=== PATIENT | female | born 1980 | race Caucasian/White ===

== ENCOUNTER 2016-06-06 15:12 | Emergency (ER) | payer OTHER ==
[~2016-06-06] VITALS: Ht 162.6 cm; Wt 68.9 kg
[2016-06-06 15:17] VITALS: Ht 162.6 cm; Wt 68.9 kg
[2016-06-06] MEDS ORDERED: morphine 4 MG/ML VIAL IV STA (15:54)
[2016-06-06] MEDS ORDERED: ONDANSETRON 4 MG INJ IV STA (15:54)
[2016-06-06 16:26] LABS: ADD SCAN DIFF NO
[2016-06-06 16:29] LABS: BASOPHIL # 0.1 10^3/ul (0.0-0.1); BASOPHILS % 0.5 % (0.0-2.0); EOSINOPHILS # 0.3 10^3/ul (0.0-0.5); EOSINOPHILS % 3.5 % (0.0-7.0); HEMATOCRIT 39.2 % (37.0-47.0); HEMOGLOBIN 13.6 g/dl (12.0-16.0); LYMPHOCYTES # 1.9 10^3/ul (0.8-2.9); LYMPHOCYTES % 19.8 % (15.0-51.0); MEAN CORPUSCULAR HEMOGLOBIN 31.1 pg (29.0-33.0); MEAN CORPUSCULAR HGB CONC 34.7 g/dl (32.0-37.0); MEAN CORPUSCULAR VOLUME 89.5 fl (82.0-101.0); MEAN PLATELET VOLUME 10.1 fl (7.4-10.4); MONOCYTE # 0.5 10^3/ul (0.3-0.9); MONOCYTES % 5.2 % (0.0-11.0); NEUTROPHIL # 6.7 10^3/ul (1.6-7.5); NEUTROPHILS % 70.8 % (39.0-77.0); PLATELET COUNT 264 10^3/UL (140-415); RED BLOOD COUNT 4.38 10^6/ul (4.20-5.40); RED CELL DISTRIBUTION WIDTH 12.6 % (11.5-14.5); WHITE BLOOD COUNT 9.5 10^3/ul (4.8-10.8)
[2016-06-06 16:30] LABS: ADD UMIC YES; URINE BILIRUBIN (Dip) NEGATIVE (NEGATIVE); URINE BLOOD (Dip) 3+ (NEGATIVE); URINE COLOR LT. YELLOW (YELLOW); URINE GLUCOSE (Dip) NEGATIVE (NEGATIVE); URINE KETONES (Dip) NEGATIVE (NEGATIVE); URINE LEUKOCYTE ESTERASE (Dip) TRACE (NEGATIVE); URINE NITRITE (Dip) POSITIVE (NEGATIVE); URINE TOTAL PROTEIN (Dip) TRACE (NEGATIVE); URINE UROBILINOGEN (Dip) 0.2 E.U./dL (0.1-1.0)
[2016-06-06 16:43] LABS: ALBUMIN 4.5 g/dl (3.3-4.9)
[2016-06-06 16:44] LABS: POTASSIUM 3.9 mmol/L (3.5-5.1)
[2016-06-06 16:45] LABS: CREATININE 0.71 mg/dl (0.44-1.00)
[2016-06-06 16:46] LABS: ALBUMIN/GLOBULIN RATIO 1.4; BILIRUBIN,INDIRECT 0.2 mg/dl (0-1.1); BILIRUBIN,TOTAL 0.2 mg/dl (0.2-1.3); CALCIUM 9.5 mg/dl (8.4-10.2); TOTAL PROTEIN 7.7 g/dl (6.1-8.1)
[2016-06-06 16:54] LABS: BACTERIA,URINE MODERATE; SQUAMOUS EPITHELIAL CELL,UR FEW
--- NOTE | 2016-06-06 17:39 | RADRPT ---
PROCEDURE: CT abdomen and pelvis without contrast. CLINICAL INDICATION: Right abdominal pain TECHNIQUE: Continues 2.5 mm axial images were obtained from the domes of the diaphragms to the inf erior pubic rami. No oral or intravenous contrast was administered. The calculated dose length prod uct (DLP) = 454.96 mGy-cm. Exam CTDlvol = 8.16 mGy. One or more of the following dose reduction t echniques were used: Automated exposure control, adjustment of the mA and or KV according to patient size, or use of iterative reconstruction technique. One or more of the following dose reduction te chniques were used: Automated exposure control, adjustment of the mA and or KV according to patient size, or use of iterative reconstruction technique. COMPARISON: None. FINDINGS: The lung bases are clear. No pleural pericardial fluid is seen. Liver, gallbladder, pancreas, spleen, and adrenals are within normal limits. Evaluation of the nacho tourinary system demonstrates a 5.2 x 4.3 mm calcification just posterior to the right [place] trigone of the bladder which likely represents a very distal ureteral calculus just proximal to the ureterov esicular junction. There is associated mild right hydronephrosis. In addition, there are nonobstru cting bilateral intrarenal calculi. No perinephric fluid or stranding seen. Aorta is normal in [place] iber. There are no pathologically enlarged mesenteric lymph nodes. The stomach and small bowel loo ps are within normal limits. No small bowel dilatation or obstruction is identified. There is no f ree fluid, free air, abscess in the abdomen CT pelvis: Images through the pelvis demonstrate no free fluid, free air, abscess. Bladder is norm ally distended grossly unremarkable. There are no bladder calculi. Uterus and adnexa are grossly u nremarkable. Evaluation of the colon demonstrates no diverticulosis, diverticulitis or acute coliti s. Normal appendix is visualized. Terminal ileum is unremarkable. There are no pathologically enl arged iliac chain lymph nodes. No destructive bony lesions are seen. IMPRESSION: 1. 5.2 x 4.3 mm calcification right [place] pelvis posterior the bladder likely represents a calculus in the distal right ureter just proximal to the ureterovesicular junction. There is associated mild right hydro ureteral nephrosis. If indicated this can be further evaluated with CT urogram. 2. Additional nonobstructing bilateral intrarenal calculi. 3. Normal appendix RPTAT: HH .Stefano Kelly MD, MD Date Time Electronically viewed and signed by .Stfeano Kelly MD, MD on 06/06/2016 17:39 .W/
[2016-06-06] MEDS ORDERED: KETOROLAC 30 MG INJ IV STA (17:51)
[2016-06-06] MEDS ORDERED: CEFTRIAXONE 1 GM/50 ML (PMX) 50 ML IVPB ONE (18:00)
[2016-06-06] MEDS ORDERED: CEPH-443 PO (18:06)
[2016-06-06] MEDS ORDERED: HYDR-906 PO (18:06)
[2016-06-06] MEDS ORDERED: TAMS-14 PO (18:06)
--- NOTE | 2016-06-06 18:11 | ERD ---
ER Documentation Chief Complaint Date/Time DATE: 06/06/16 TIME: 18:10 Chief Complaint RLQ AP X 1 day with nausea. HPI This 36-year-old female complains of a sudden onset right lower quadrant abdominal pain today. She denies fevers, vomiting, shortness breath or chest pain. She denies any urinary complaints ROS All systems reviewed and are negative except as per history of present illness. Medications Home Meds Active Scripts Tamsulosin Hcl* (Flomax*) 0.4 Mg Cap.er.24h, 0.4 MG PO QPM, #30 CAP Prov:YUSUF NOLAND MD 06/06/16 Cephalexin* (Keflex*) 500 Mg Capsule, 500 MG PO QID for 7 Days, CAP Prov:YUSUF NOLAND MD 06/06/16 Hydrocodone/Acetaminophen ([place] 5-325 Tablet) 1 Each Tablet, 1 TAB PO Q6H Y for PAIN, #14 TAB Prov:YUSUF NOLAND MD 06/06/16 Allergies Allergies: Coded Allergies: No Known Allergy (Unverified , 06/06/16) Physical Exam Vitals Vital Signs Date Time Temp Pulse Resp B/P Pulse Ox O2 Delivery O2 Flow Rate FiO2 06/06/16 15:17 97.5 76 20 139/99 99 Physical Exam Const: [] Head: Atraumatic Eyes: Normal Conjunctiva ENT: Normal External Ears, Nose and Mouth. Neck: Full range of motion..~ No meningismus. Resp: Clear to auscultation bilaterally Cardio: Regular rate and rhythm, no murmurs Abd: Soft, non tender, non distended. Normal bowel sounds Skin: No petechiae or rashes Back: No midline or flank tenderness Ext: No cyanosis, or edema Neur: Awake and alert Psych: Normal Mood and Affect Result Diagram: 06/06/16 1608 06/06/16 1608 Results 24 hrs Laboratory Tests Test 06/06/16 16:08 Alanine Aminotransferase (ALT/SGPT) 24IU/L Albumin 4.5g/dl Albumin/Globulin Ratio 1.40 Alkaline Phosphatase 73IU/L Anion Gap 20 Aspartate Amino Transf (AST/SGOT) 23IU/L Basophils # 0.110^3/ul Basophils % 0.5% Blood Urea Nitrogen 11mg/dl Calcium Level 9.5mg/dl Carbon Dioxide Level 22mmol/L Chloride Level 107mmol/L Creatinine 0.71mg/dl Direct Bilirubin 0.00mg/dl Eosinophils # 0.310^3/ul Eosinophils % 3.5% Globulin 3.20g/dl Glucose Level 96mg/dl Hematocrit 39.2% Hemoglobin 13.6g/dl Indirect Bilirubin 0.2mg/dl Lipase 62U/L Lymphocytes # 1.910^3/ul Lymphocytes % 19.8% Mean Corpuscular Hemoglobin 31.1pg Mean Corpuscular Hemoglobin Concent 34.7g/dl Mean Corpuscular Volume 89.5fl Mean Platelet Volume 10.1fl Monocytes # 0.510^3/ul Monocytes % 5.2% Neutrophils # 6.710^3/ul Neutrophils % 70.8% Nucleated Red Blood Cells # 0.010^3/ul Nucleated Red Blood Cells % 0.0/100WBC Platelet Count 97394^3/UL Potassium Level 3.9mmol/L Red Blood Count 4.3810^6/ul Red Cell Distribution Width 12.6% Sodium Level 145mmol/L Total Bilirubin 0.2mg/dl Total Protein 7.7g/dl Urine Bacteria MODERATE Urine Bilirubin NEGATIVE Urine Clarity SL HAZY Urine Color LT. YELLOW Urine Glucose NEGATIVE% Urine Hemoglobin 3+ Urine Ketones NEGATIVE Urine Leukocyte Esterase TRACE Urine Microscopic RBC 10-25/HPF Urine Microscopic WBC 5-10/HPF Urine Nitrite POSITIVE Urine Specific [place] 1.020 Urine Squamous Epithelial Cells FEW Urine Total Protein TRACE Urine Urobilinogen 0.2 E.U./dL Urine pH 6.5 White Blood Count 9.510^3/ul Current Medications Medications (Trade) Dose Ordered Sig/Jessica Route PRN Reason Start Time Stop Time Status Last Admin Dose Admin Morphine Sulfate (morphine) 4 mg ONCE STAT IV 06/06/16 15:54 06/06/16 15:55 DC 06/06/16 16:13 Ondansetron HCl 4 mg 4 mg ONCE STAT IV 06/06/16 15:54 06/06/16 15:55 DC 06/06/16 16:13 Ceftriaxone Sodium (Rocephin) 50 ml @ 100 mls/hr ONCE ONCE IVPB 06/06/16 18:00 06/06/16 18:29 Ketorolac Tromethamine (Toradol) 30 mg ONCE STAT IV 06/06/16 17:51 06/06/16 18:07 DC Procedures/MDM IV obtained. Patient was other morphine 4 g IV. CBC and CMP are normal. Urine shows leukocytes, nitrites and bacteria with hemoglobin. CT abdomen pelvis without contrast shows a 5 mm distal ureter stone. There is no evidence of appendicitis, abscess, obstructions, additional acute findings. Patient was given Rocephin 1 g IV and Toradol 30 g IV for findings of UTI. Patient shows no signs to suggest septic stone, pyelonephritis or sepsis. Patient will be discharged home with instructions to follow-up with primary doctor in likely urology for persistent symptoms. She should otherwise drink clear fluids at home, return immediately for fevers, vomiting, new worsening symptoms. The patient was stable with no new complaints during the ER course. Clinically, there is no current evidence to suggest meningitis, sepsis, acute abdomen, pneumonia, acute coronary syndrome, pulmonary embolism, or any other emergent condition appearing to require further evaluation or hospitalization. The patient should certainly return for any new or worsening symptoms per the aftercare instructions. They should otherwise follow-up with her primary care doctor for reevaluation this week. Departure Diagnosis: Primary Impression: Kidney stone on right side Condition: Stable Patient Instructions: Understanding Urinary Tract Infections (UTIs), Kidney Stone W/ Colic Referrals: CRISTIAN CARLISLE MD,NIRANJAN Galarza MD Additional Instructions: Patient appears to be due to kidney stone. He has signs of infection as well and will be treated for this. See urology and primary doctor for further evaluation. Drink plenty of fluids at home. Return for fevers, vomiting, new or worsening symptoms. May need authorization from primary doctor for urology visit. YUSUF NOLAND MD Jun 06, 2016 18:11
[2016-06-06 19:07] VITALS: BP 128/86; PULSE 78; RESP 20; TEMP 98
== END 2016-06-06 19:07 | disposition home or self-care (01) ==
LOC: FTE 15:12
DX: N20.0 Calculus of kidney (principal); R11.0 Nausea
CPT/HCPCS: 36415; 74176; 80053; 81001; 83690; 85025; 87086; 96374; 96375; J0696; J1885; J2270; J2405; Z7502; 81003

== ENCOUNTER 2017-01-29 06:55 | Emergency (ER) | payer OTHER ==
[~2017-01-29] VITALS: Ht 160 cm; Wt 69.0 kg
[~2017-01-29 06:55] MED LIST: CEPH-443 PO; HYDR-906 PO; TAMS-14 PO
[2017-01-29 06:58] VITALS: Ht 160 cm; Wt 69.0 kg
[2017-01-29 09:17] LABS: BASOPHILS % 0.5 % (0.0-2.0); EOSINOPHILS # 0.2 10^3/ul (0.0-0.5); HEMATOCRIT 40.3 % (37.0-47.0); HEMOGLOBIN 13.6 g/dl (12.0-16.0); LYMPHOCYTES % 34.4 % (15.0-51.0); MEAN CORPUSCULAR HEMOGLOBIN 30.4 pg (29.0-33.0); MEAN CORPUSCULAR HGB CONC 33.7 g/dl (32.0-37.0); MONOCYTE # 0.4 10^3/ul (0.3-0.9); MONOCYTES % 7.1 % (0.0-11.0); NEUTROPHIL # 3.1 10^3/ul (1.6-7.5); NEUTROPHILS % 53.8 % (39.0-77.0); PLATELET COUNT 247 10^3/UL (140-415); RED BLOOD COUNT 4.48 10^6/ul (4.20-5.40); RED CELL DISTRIBUTION WIDTH 12.7 % (11.5-14.5); WHITE BLOOD COUNT 5.8 10^3/ul (4.8-10.8)
--- NOTE | 2017-01-29 10:32 | RADRPT ---
PROCEDURE: OB Ultrasound. CLINICAL INDICATION: Positive test. Vaginal bleeding. TECHNIQUE: Ultrasound of the pelvis was performed with transabdominal and transvaginal sonography in the axial and sagittal planes. COMPARISON: No prior study is available for comparison. FINDINGS: There is a single intrauterine gestational sac. pole and yolk sac are present. There is heart motion. heart rate is 129 beats per minute. [place]-rump length is 0.42 cm. Mean sac diameter is 0.90 cm. There is a small subchorionic hemorrhage. Menstrual age by ultrasound dates is 5 weeks 6 days. This indicates an expected date of delivery of 09/25/2017. The right ovary appears normal measuring 3.4 x 2.5 x 2.6 cm. The left ovary appears normal measuring 2.6 x 1.1 x 1.7 cm. Color Doppler and pulsed Doppler sonography demonstrate normal flow to the ovaries. There is no other pelvic mass or free fluid. IMPRESSION: 1. Single live intrauterine gestation of 5 weeks 6 days menstrual age by ultrasound dates. 2. Expected date of delivery is 09/25/2017. 3. Small subchorionic hemorrhage. RPTAT: QQ .Garrett Segal MD, Date Time Electronically viewed and signed by .Garrett Segal MD, on 01/29/2017 10:31 .R/
[2017-01-29 11:16] LABS: URINE BLOOD (Dip) POC Trace-intact (NEGATIVE)
--- NOTE | 2017-01-29 13:14 | ERD ---
ER Documentation Chief Complaint Chief Complaint pt bib self with c/o vag bleeding starting last night, approx 8wks preg HPI This is a 36-year-old female presents to the ER complaining of light vaginal spotting that started night. Patient is not using any pads or panty liners, she only bleeds a little bit when she urinates. She denies any urinary frequency or dysuria. She denies any vaginal discharge. Patient is currently 8 weeks . A0. ROS 12 point review of systems was done, all negative except per HPI. Medications Home Meds Active Scripts Tamsulosin Hcl* (Flomax*) 0.4 Mg Cap.er.24h, 0.4 MG PO QPM, #30 CAP Prov:YUSUF NOLAND MD 06/06/16 Cephalexin* (Keflex*) 500 Mg Capsule, 500 MG PO QID for 7 Days, CAP Prov:YUSUF NOLAND MD 06/06/16 Hydrocodone/Acetaminophen ([place] 5-325 Tablet) 1 Each Tablet, 1 TAB PO Q6H Y for PAIN, #14 TAB Prov:YUSUF NOLAND MD 06/06/16 Allergies Allergies: Coded Allergies: No Known Allergy (Unverified , 06/06/16) PMhx/Soc History of Surgery: No Anesthesia Reaction: No Hx Neurological Disorder: No Hx Respiratory Disorders: No Hx Cardiac Disorders: No Hx Psychiatric Problems: No Hx Miscellaneous Medical Probl: No Hx Alcohol Use: No Hx Substance Use: No Hx Tobacco Use: No Smoking Status: Never smoker Physical Exam Vitals Vital Signs Date Time Temp Pulse Resp B/P Pulse Ox O2 Delivery O2 Flow Rate FiO2 01/29/17 06:58 97.0 70 16 122/72 98 Physical Exam GENERAL: The patient is well developed and appropriate for usual state of health , in no apparent distress. HEENT: Atraumatic. CHEST: Clear to auscultation bilaterally. There are no rales, wheezes or rhonchi. HEART: Regular rate and rhythm. No murmurs, clicks, rubs or gallops. ABDOMEN: Soft, nontender and nondistended. BACK: No midline or flank tenderness. NEURO: Alert and oriented. Result Diagram: 01/29/17 0844 Results 24 hrs Laboratory Tests Test 01/29/17 08:44 01/29/17 11:15 White Blood Count 5.810^3/ul Red Blood Count 4.4810^6/ul Hemoglobin 13.6g/dl Hematocrit 40.3% Mean Corpuscular Volume 90.0fl Mean Corpuscular Hemoglobin 30.4pg Mean Corpuscular Hemoglobin Concent 33.7g/dl Red Cell Distribution Width 12.7% Platelet Count 91266^3/UL Mean Platelet Volume 10.0fl Neutrophils % 53.8% Lymphocytes % 34.4% Monocytes % 7.1% Eosinophils % 4.0% Basophils % 0.5% Nucleated Red Blood Cells % 0.0/100WBC Neutrophils # 3.110^3/ul Lymphocytes # 2.010^3/ul Monocytes # 0.410^3/ul Eosinophils # 0.210^3/ul Basophils # 0.010^3/ul Nucleated Red Blood Cells # 0.010^3/ul Beta HCG, Quantitative 3636.7mIU/ml Bedside Urine pH (LAB) 6.0 Bedside Urine Protein (LAB) Negative Bedside Urine Glucose (UA) Negative Bedside Urine Ketones (LAB) Negative Bedside Urine Blood Trace-intact Bedside Urine Nitrite (LAB) Negative Bedside Urine Leukocyte Esterase (L Trace [place] [id number] Radiology Main Line: [phone] DIAGNOSTIC IMAGING REPORT Patient: PURNIMA REYES : 1980 Age: 36 Sex: F MR #: [id number] DOS: 01/29/17 0832 Ordering MD: JERI CAMILO PA-C Location: E Room/Bed: PROCEDURE: OB Ultrasound. CLINICAL INDICATION: Positive test. Vaginal bleeding. TECHNIQUE: Ultrasound of the pelvis was performed with transabdominal and transvaginal sonography in the axial and sagittal planes. COMPARISON: No prior study is available for comparison. FINDINGS: There is a single intrauterine gestational sac. pole and yolk sac are present. There is heart motion. heart rate is 129 beats per minute. [place]-rump length is 0.42 cm. Mean sac diameter is 0.90 cm. There is a small subchorionic hemorrhage. Menstrual age by ultrasound dates is 5 weeks 6 days. This indicates an expected date of delivery of 09/25/2017. The right ovary appears normal measuring 3.4 x 2.5 x 2.6 cm. The left ovary appears normal measuring 2.6 x 1.1 x 1.7 cm. Color Doppler and pulsed Doppler sonography demonstrate normal flow to the ovaries. There is no other pelvic mass or free fluid. IMPRESSION: 1. Single live intrauterine gestation of 5 weeks 6 days menstrual age by ultrasound dates. 2. Expected date of delivery is 09/25/2017. 3. Small subchorionic hemorrhage. RPTAT: QQ .Yusuf Segal MD, MD Date Time Electronically viewed and signed by .Yusuf Segal MD, MD on 01/29/2017 10:31 .R/ CC: JERI CAMILO Procedures/MDM Differential diagnosis: Threatened , missed , incomplete , ectopic , molar , UTI, pyelonephritis. This time patient's ultrasound is normal, suspicion for threatened is low however cannot be ruled out. I advised patient to follow-up with her OB within 48 hours or to return here within 48 hours for follow-up ultrasound and serial hCGs. She is hemodynamically stable, afebrile and well-appearing. She can follow-up on outpatient basis.. I shared My medical decision making with the patient, she understands and agrees with plan. Departure Diagnosis: Primary Impression: Vaginal bleeding Condition: Stable Patient Instructions: Vaginal Bleed in Additional Instructions: Llame al doctor MAANA y barbara kimberly [place] PARA DENTRO DE 1-2 [place].Dgale a la secretaria que nosotros le instruimos hacer esta [place].Avise o llame si judge condicin se empeora antes de la [place]. Regresa aqui si peor o no mejor. JERI CMAILO Jan 29, 2017 13:14
== END 2017-01-29 11:45 | disposition home or self-care (01) ==
LOC: FTE 06:55
DX: O20.9 Hemorrhage in early pregnancy, unspecified (principal); R10.2 Pelvic and perineal pain; Z3A.01 Less than 8 weeks gestation of pregnancy
CPT/HCPCS: 36415; 76801; 76817; 81003; 84702; 85025; 86900; 86901; Z7502

== ENCOUNTER 2017-02-20 13:00 | Emergency (ER) | payer OTHER ==
[~2017-02-20] VITALS: Ht 154.9 cm; Wt 69.7 kg
[2017-02-20 13:03] VITALS: Ht 154.9 cm; Wt 69.7 kg
[2017-02-20 16:07] LABS: ADD UMIC YES; UR ASCORBIC ACID 40 mg/dL (NEGATIVE); UR BACTERIA MODERATE /HPF (NONE SEEN); UR BILIRUBIN (Dip) NEGATIVE (NEGATIVE); UR BLOOD (Dip) 3+ mg/dL (NEGATIVE); UR CLARITY SLIGHTLY CLOUDY (CLEAR); UR COLOR YELLOW (YELLOW); UR GLUCOSE (Dip) NEGATIVE (NEGATIVE); UR KETONES (Dip) NEGATIVE (NEGATIVE); UR LEUKOCYTE ESTERASE (Dip) 1+ Leu/ul (NEGATIVE); UR NITRITE (Dip) POSITIVE (NEGATIVE); UR RBC > 182 /HPF (0-5); UR SPECIFIC GRAVITY (Dip) 1.016 (1.003-1.030); UR TOTAL PROTEIN (Dip) 1+ mg/dl (NEGATIVE); UR UROBILINOGEN (Dip) NEGATIVE (NEGATIVE)
[2017-02-20 16:10] LABS: BASOPHIL # 0.1 10^3/ul (0.0-0.1); BASOPHILS % 0.6 % (0.0-2.0); EOSINOPHILS # 0.3 10^3/ul (0.0-0.5); EOSINOPHILS % 2.3 % (0.0-7.0); HEMATOCRIT 39.4 % (37.0-47.0); HEMOGLOBIN 13.6 g/dl (12.0-16.0); LYMPHOCYTES # 2.4 10^3/ul (0.8-2.9); LYMPHOCYTES % 20.5 % (15.0-51.0); MEAN CORPUSCULAR HEMOGLOBIN 31.6 pg (29.0-33.0); MEAN CORPUSCULAR HGB CONC 34.5 g/dl (32.0-37.0); MEAN CORPUSCULAR VOLUME 91.4 fl (82.0-101.0); MEAN PLATELET VOLUME 9.7 fl (7.4-10.4); MONOCYTE # 0.7 10^3/ul (0.3-0.9); NEUTROPHIL # 8.1 10^3/ul (1.6-7.5); NEUTROPHILS % 70.3 % (39.0-77.0); PLATELET COUNT 248 10^3/UL (140-415); RED BLOOD COUNT 4.31 10^6/ul (4.20-5.40); RED CELL DISTRIBUTION WIDTH 12.4 % (11.5-14.5); WHITE BLOOD COUNT 11.5 10^3/ul (4.8-10.8)
--- NOTE | 2017-02-20 16:49 | RADRPT ---
PROCEDURE: US Pelvis. CLINICAL INDICATION: vaginal bleeding TECHNIQUE: Multiple sonographic images of the pelvis were obtained utilizing a transabdominal and endovaginal technique. The images were reviewed on a PACS workstation. COMPARISON: 01/29/2017 FINDINGS: The uterus is normal in size and demonstrates a normal appearance of the myometrium. The endometria l stripe is heterogeneous in appearance and has the thickness of 25 mm. There is slightly increased vascularity in the endometrium. The previously seen intrauterine gestation is no longer visualized. The ovaries are normal in size and echogenicity. Normal Doppler flow is identified in both ovaries. The right ovary measures 2.8 x 2.5 cm. The left ovary measures 2.7 x 1.5 x 1.7 cm. No free fluid is present within the pelvis.. RPTAT: AA IMPRESSION: The previously seen intrauterine gestation is no longer visualized. Thickened endometrium with slightly increased vascularity, may represent retained products of concep tion. Follow-up ultrasound and HCG levels is recommended. .Nathan Madrid MD, MD Date Time Electronically viewed and signed by .Nathan Madrid MD, on 02/20/2017 16:49 .S/
[2017-02-20] MEDS ORDERED: HYDR-906 PO (17:17)
[2017-02-20] MEDS ORDERED: NITR-58 PO (17:19)
[2017-02-20 17:31] VITALS: BP 117/70; PULSE 65; RESP 18; TEMP 98.3
--- NOTE | 2017-02-20 17:40 | ERD ---
ER Documentation Chief Complaint Chief Complaint PELBVIC PAIN WITH 8 WEEKS PREG WITH VAG SPOTTING X 2 WEEKS HPI This is a 37-year-old female presenting to emergency department with pelvic pain and vaginal bleeding 2 weeks. Patient is currently 8 weeks with last menstrual period December 03, 2012. Patient states she is having bilateral pelvic pain. Patient rates pain 5/10 to pelvis and describes pain as pressure- like. Patient denies any dysuria or hematuria. No urinary frequency or urgency. Patient states 2 weeks ago she developed vaginal spotting and now has heavy menstrual bleeding. Patient is a A0. Patient was seen here previously about 3 weeks ago and pelvic ultrasound revealed subchorionic hemorrhage with normal IUP. ROS All systems reviewed and are negative except as per history of present illness. Medications Home Meds Active Scripts Nitrofurantoin Monohyd Macrocr* (Macrobid*) 100 Mg Capsr, 100 MG PO BID for 5 Days, CAP Prov:TERRI HERNÁNDEZ NP 02/20/17 Hydrocodone/Acetaminophen (Caldwell 5-325 Tablet) 1 Each Tablet, 1 TAB PO Q6H Y for PAIN, #7 TAB Prov:TERRI HERNÁNDEZ NP 02/20/17 Tamsulosin Hcl* (Flomax*) 0.4 Mg Cap.er.24h, 0.4 MG PO QPM, #30 CAP Prov:YUSUF NOLADN MD 06/06/16 Cephalexin* (Keflex*) 500 Mg Capsule, 500 MG PO QID for 7 Days, CAP Prov:YUSUF NOLAND MD 06/06/16 Hydrocodone/Acetaminophen (Caldwell 5-325 Tablet) 1 Each Tablet, 1 TAB PO Q6H Y for PAIN, #14 TAB Prov:YUSUF NOLAND MD 06/06/16 Allergies Allergies: Coded Allergies: No Known Allergy (Unverified , 06/06/16) PMhx/Soc History of Surgery: No Anesthesia Reaction: No Hx Neurological Disorder: No Hx Respiratory Disorders: No Hx Cardiac Disorders: No Hx Psychiatric Problems: No Hx Miscellaneous Medical Probl: No Hx Alcohol Use: No Hx Substance Use: No Hx Tobacco Use: No Smoking Status: Never smoker Physical Exam Vitals Vital Signs Date Time Temp Pulse Resp B/P Pulse Ox O2 Delivery O2 Flow Rate FiO2 02/20/17 17:31 98.3 65 18 117/70 97 Room Air 02/20/17 13:03 98.7 80 20 145/90 97 Physical Exam Const: Alert, crying, anxious Head: Atraumatic Eyes: Normal Conjunctiva ENT: Normal External Ears, Nose and Mouth. Neck: Full range of motion..~ No meningismus. Resp: Clear to auscultation bilaterally Cardio: Regular rate and rhythm, no murmurs Abd: Soft, non tender, non distended. Normal bowel sounds Skin: No petechiae or rashes Back: No midline or flank tenderness Ext: No cyanosis, or edema Neur: Awake and alert Psych: Normal Mood and Affect Result Diagram: 02/20/17 1600 Results 24 hrs Laboratory Tests Test 02/20/17 15:49 02/20/17 16:00 Urine Color YELLOW Urine Clarity SLIGHTLY CLOUDY Urine pH 6.0 Urine Specific [place] 1.016 Urine Ketones NEGATIVEmg/dL Urine Nitrite POSITIVEmg/dL Urine Bilirubin NEGATIVEmg/dL Urine Urobilinogen NEGATIVEmg/dL Urine Leukocyte Esterase 1+[place]/ul Urine Microscopic RBC > 182/HPF Urine Microscopic WBC 23/HPF Urine Bacteria MODERATE/HPF Urine Hemoglobin 3+mg/dL Urine Glucose NEGATIVEmg/dL Urine Total Protein 1+mg/dl White Blood Count 11.510^3/ul Red Blood Count 4.3110^6/ul Hemoglobin 13.6g/dl Hematocrit 39.4% Mean Corpuscular Volume 91.4fl Mean Corpuscular Hemoglobin 31.6pg Mean Corpuscular Hemoglobin Concent 34.5g/dl Red Cell Distribution Width 12.4% Platelet Count 16676^3/UL Mean Platelet Volume 9.7fl Neutrophils % 70.3% Lymphocytes % 20.5% Monocytes % 6.0% Eosinophils % 2.3% Basophils % 0.6% Nucleated Red Blood Cells % 0.0/100WBC Neutrophils # 8.110^3/ul Lymphocytes # 2.410^3/ul Monocytes # 0.710^3/ul Eosinophils # 0.310^3/ul Basophils # 0.110^3/ul Nucleated Red Blood Cells # 0.010^3/ul Beta HCG, Quantitative 3719.1mIU/ml Procedures/MDM Patient: PURNIMA REYES : 1980 Age: 37 Sex: F MR #: [id number] DOS: 02/20/17 1542 Ordering MD: TERRI BRASWELL NP Location: [facility] Room/Bed: PROCEDURE: US Pelvis. CLINICAL INDICATION: vaginal bleeding TECHNIQUE: Multiple sonographic images of the pelvis were obtained utilizing a transabdominal and endovaginal technique. The images were reviewed on a PACS workstation. COMPARISON: 01/29/2017 FINDINGS: The uterus is normal in size and demonstrates a normal appearance of the myometrium. The endometrial stripe is heterogeneous in appearance and has the thickness of 25 mm. There is slightly increased vascularity in the endometrium. The previously seen intrauterine gestation is no longer visualized. The ovaries are normal in size and echogenicity. Normal Doppler flow is identified in both ovaries. The right ovary measures 2.8 x 2.5 cm. The left ovary measures 2.7 x 1.5 x 1.7 cm. No free fluid is present within the pelvis.. RPTAT: AA IMPRESSION: The previously seen intrauterine gestation is no longer visualized. Thickened endometrium with slightly increased vascularity, may represent retained products of conception. Follow-up ultrasound and HCG levels is recommended. MDM: This is a 37-year-old female presenting to emergency department for pelvic pain with vaginal bleeding while . Patient states she is about 8 weeks with last menstrual period December 03, 2017. Patient developed heavy vaginal bleeding since yesterday. Before ultrasound done today, patient noticed passage of tissue in pad. Tissue appears to be expelled fetus. Tissue sent to lab for examination. CBC shows no significant anemia or infection. Beta-hCG is 3719.1. UA is positive for likely UTI. OB ultrasound reviewed by radiologist as previously seen intrauterine gestation is no longer visualized. Thickened endometrium with slightly increased vascularity, may represent retained products of conception. Discussed findings with patient. Consulted construction tech laborist, Dr. Andre regarding this patient and he states that patient is appropriate for outpatient management. Differential diagnosis includes but not limited to ectopic , threatened , missed , normal , subchorionic hemorrhage , ruptured ovarian cyst, UTI or pyelonephritis. Low suspicion for ectopic . Patient is appropriate for outpatient management. Patient was given prescription for Caldwell and Macrobid. Instructed patient to follow-up with OB/ [facility] in the next 2-3 days. Return to ED sooner for any high fever, chest pain, difficulty breathing, shortness breath, wheezing, vomiting, diarrhea, abdominal pain or any new or worsening symptoms. Patient verbalizes understanding. All questions answered at discharge. Disclaimer: Inadvertent spelling and grammatical errors are likely due to EHR/ dictation software use and do not reflect on the overall quality of patient care. Also, please note that the electronic time recorded on this note does not necessarily reflect the actual time of the patient encounter. Departure Diagnosis: Primary Impression: Miscarriage Condition: Stable Patient Instructions: Miscarriage, Spontaneous (Completed) Referrals: [facility] YOU HAVE RECEIVED A MEDICAL SCREENING EXAM AND THE RESULTS INDICATE THAT YOU DO NOT HAVE A CONDITION THAT REQUIRES URGENT TREATMENT IN THE EMERGENCY DEPARTMENT. FURTHER EVALUATION AND TREATMENT OF YOUR CONDITION CAN WAIT UNTIL YOU ARE SEEN IN YOUR DOCTORS OFFICE WITHIN THE NEXT 1-2 DAYS. IT IS YOUR RESPONSIBILITY TO MAKE AN APPOINTMENT FOR FOLOW-UP CARE. IF YOU HAVE A PRIMARY DOCTOR --you should call your primary doctor and schedule an appointment IF YOU DO NOT HAVE A PRIMARY DOCTOR YOU CAN CALL OUR PHYSICIAN REFERRAL HOTLINE AT IF YOU CAN NOT AFFORD TO SEE A PHYSICIAN YOU CAN CHOSE FROM THE FOLLOWING [facility] [address] [facility]. [facility] [address] [facility]. [facility] [address] [facility]. [facility] [address] [facility]. [facility] [address] [facility]. [facility]. [address] [facility]. [facility] YOU HAVE RECEIVED A MEDICAL SCREENING EXAM AND THE RESULTS INDICATE THAT YOU DO NOT HAVE A CONDITION THAT REQUIRES URGENT TREATMENT IN THE EMERGENCY DEPARTMENT. FURTHER EVALUATION AND TREATMENT OF YOUR CONDITION CAN WAIT UNTIL YOU ARE SEEN IN YOUR DOCTORS OFFICE WITHIN THE NEXT 1-2 DAYS. IT IS YOUR RESPONSIBILITY TO MAKE AN APPOINTMENT FOR FOLOW-UP CARE. IF YOU HAVE A PRIMARY DOCTOR --you should call your primary doctor and schedule and appointment IF YOU DO NOT HAVE A PRIMARY DOCTOR YOU CAN CALL OUR PHYSICIAN REFERRAL HOTLINE AT . IF YOU CAN NOT AFFORD TO SEE A PHYSICIAN YOU CAN CHOSE FROM THE FOLLOWING [facility] INSTITUTIONS: [facility] [address] [place] [address] [facility] [address] [place] [address] [facility] [place] [address] [place] [address] EXTRUDER OPERATOR [place] [address] [facility] [address] [place] [address] OFFICE FAX , [facility] [address] [place] [address] [address] [address] [place] [address] [address] [facility] [address] [facility] [address] [address] [facility] [address] [place] [address] [facility] [address] [place] [address] [facility] [address] [address], [facility] [address] [address] [address] [facility]. [address], [facility] [address] [address] [address] [place], [place] [id number] Additional Instructions: Call your primary care doctor TOMORROW for an appointment during the next 2-3 days.See the doctor sooner or return here if your condition worsens before your appointment time. Return to ED for any high fever, chest pain, difficulty breathing, shortness breath, wheezing, vomiting, diarrhea, abdominal pain or any new or worsening symptoms. TERRI HERNÁNDEZ NP Feb 20, 2017 17:40
== END 2017-02-20 17:34 | disposition home or self-care (01) ==
LOC: FTE 13:00
DX: O03.9 Complete or unspecified spontaneous abortion without complication (principal); R10.2 Pelvic and perineal pain; Z3A.08 8 weeks gestation of pregnancy
CPT/HCPCS: 36415; 76801; 76817; 81001; 84702; 85025; 86900; 86901; Z7502

== ENCOUNTER 2017-12-04 08:04 | Inpatient (IN) | END 2017-12-11 12:47 | disposition home or self-care (01) | DRG 781 ==

== ENCOUNTER 2018-05-05 09:37 | Inpatient (IN) | payer OTHER ==
[~2018-05-05] VITALS: Ht 152.4 cm; Wt 93.2 kg
[~2018-05-05 09:37] MED LIST changes: -CEPH-443 PO; -HYDR-906 PO; +NITR-58 PO; -TAMS-14 PO
[2018-05-05 09:50] VITALS: Ht 152.4 cm; Wt 93.2 kg
[2018-05-05] MEDS ORDERED: LIDOCAINE 1% (MPF) 30 ML INJ INJ PRN (10:30)
[2018-05-05] MEDS ORDERED: CARBOPROST 250 MCG INJ IM PRN (10:30)
[2018-05-05] MEDS ORDERED: OXYTOCIN 30 UNITS/LR 500 ML IV SCH ×3 (10:30→20:30)
[2018-05-05] MEDS ORDERED: IBUPROFEN 600 MG TAB PO PRN (10:30)
[2018-05-05] MEDS ORDERED: OXYTOCIN 30 UNITS/LR 500 ML IV PRN (10:30)
[2018-05-05] MEDS ORDERED: MISOPROSTOL 200 MCG TAB PR PRN (10:30)
[2018-05-05] MEDS ORDERED: METHYLERGONOVINE 0.2 MG INJ IM PRN (10:30)
[2018-05-05] MEDS ORDERED: BUTORPHANOL 2 MG INJ IV PRN (10:30)
[2018-05-05 10:39] VITALS: BP 103/67; PULSE 76; RESP 18
--- NOTE | 2018-05-05 10:45 | TRIAGE ---
OB Triage Datetime Report Generated by CPN: 05/05/2018 10:45 Datetime: 05/05/2018 10:08 Maternal Assessment Level of Consciousness: Fully Conscious DTR's/Clonus: DTRs 1+ Headache: Denies Blurred Vision: No Respiratory Effort: Unlabored Breath Sounds, Left: Clear and Equal Breath Sounds, Right: Clear and Equal Nausea/Vomiting: Denies RUQ Epigastric Pain: Denies Facial Edema: None Labor Evaluation Frequency: X1 Monitor Mode: External Duration (sec)2399: 60 Quality: Mild Pattern: Normal: <= 5 Contractions in 10 Minutes Resting Tone [place]: Relaxed Heart Rate FHR Baseline Rate: 135 Monitor Mode: External US Variability: Moderate 6-25 bpm Accelerations: 15X15 Decelerations: None Category: Category I Pain Assessment Pain Scale: 3 Pain Presence: Intermittent Pain Type: Cramping Pain Location: Back Pain Goal: 2 Membrane Status: Intact Datetime: 05/05/2018 09:45 Vaginal Exam Dilatation (cms): 3.0 Effacement (%): 80 Station: -2 Exam By: JOSE LEVY Vaginal Bleeding: None Cervix, Consistency: Soft Cervix, Position: Midposition Presentation 'A': Cephalic Datetime: 05/05/2018 09:40 Assessment Type: Triage Maternal Assessment Level of Consciousness: Fully Conscious DTR's/Clonus: DTRs 2+; No Clonus Headache: Denies Blurred Vision: No Respiratory Effort: Unlabored; Regular Rhythm; Equal Expansion Breath Sounds, Left: Clear and Equal Breath Sounds, Right: Clear and Equal Nausea/Vomiting: Denies RUQ Epigastric Pain: Denies Lower Extremities Edema: None Upper Extremities Edema: None Degree: None Facial Edema: None Fall Risk Assessment History of Falling: (0) No Secondary Diagnosis: (0) No Ambulatory Aid: (0) Bedrest/Nurse Assist IV Therapy: (0) No Gait: (0) Normal/Bedrest/Immobile Mental Status: (0) Oriented to Own Ability Fall Score: 0 Fall Risk Score Definition: No Risk: No action required Datetime: 05/05/2018 09:35 Time of Arrival: 05/05/2018 09:35 EGA: 40.1 Arrived By: Ambulatory Arrived From: Home Chief Complaint: POSTDATES FOR NST AND EFW BPP Movement: Present Contractions: Regular Time Contractions Began: 05/05/2018 06:00 Contractions: 5-10 Rupture of Membranes: Denies Vaginal Discharge: Denies Recent Sexual Intercouse: Denies Abdominal Trauma: Not Applicable Additional Patient Complaints: NONE Provider Notified: DELSHAD Initial Plan: NTS, COLEMAN AND EFW Datetime: 12/11/2017 10:47 Stage of : Antepartum Temperature Route: Oral Pain Assessment Pain Scale: 2 Pain Presence: Constant Pain Type: Burning; Ache Pain Location: Other (Annotations: LEFT HAND ,IV SITE) Pain Goal: 0 Datetime: 12/11/2017 10:45 Stage of : PT HAVING PAIN ON IV SITE,SLIGHT SWELLING,REMOVED AMD MEDICATED FOR PAIN,PT WAN BINDU TO GO HOME NOW,DR AGUILAR CALLED ON CELL AND LEFT MESSAGE AGAIN AND ALSO LEFT LABORIST DIRECT CELL PH ONE NUMBERS,PT INFORMED OF STATUS Datetime: 12/11/2017 09:32 Stage of : Antepartum Datetime: 12/11/2017 09:04 Stage of : DENIES CONTRACTIONS,NO CVS OR BACKPAINS Datetime: 12/11/2017 08:27 Heart Rate FHR Baseline Rate: 145 Monitor Mode: External US Datetime: 12/11/2017 08:24 Assessment Type: Ongoing Assessment Maternal Assessment Level of Consciousness: Fully Conscious DTR's/Clonus: DTRs 2+; No Clonus Headache: Denies Blurred Vision: No Respiratory Effort: Unlabored; Regular Rhythm; Equal Expansion Breath Sounds, Left: Clear and Equal Breath Sounds, Right: Clear and Equal Nausea/Vomiting: Denies RUQ Epigastric Pain: Denies Lower Extremities Edema: None Degree: None Upper Extremities Edema: None Degree: None Facial Edema: None Fall Risk Assessment History of Falling: (0) No Secondary Diagnosis: (0) No Ambulatory Aid: (0) Bedrest/Nurse Assist IV Therapy: (20) Yes Gait: (0) Normal/Bedrest/Immobile Mental Status: (0) Oriented to Own Ability Fall Score: 20 Fall Risk Score Definition: No Risk: No action required Datetime: 12/11/2017 08:18 Stage of : Antepartum Temperature Route: Oral Pain Assessment Pain Scale: 0 Pain Presence: None/Denies Pain Goal: 0 Datetime: 12/11/2017 08:14 Stage of : Antepartum Datetime: 12/11/2017 07:10 Stage of : Antepartum Datetime: 12/11/2017 05:57 Stage of : Antepartum Temperature Route: Oral Contraction Comments: PT DENIES CRAMPING Comments: PT STATES + FM Membrane Status: Intact Amniotic Fluid Amount: None Vaginal Bleeding: None Datetime: 12/11/2017 05:00 Stage of : Antepartum Pain Presence: None/Denies Pain Type: N/A Pain Assessment Comments: PT REMAINS ASLEEP WITH EVEN UNLABORED BREATHING. Datetime: 12/11/2017 03:40 Stage of : Antepartum (Annotations: Data stored by CPN on behalf of user) Pain Presence: None/Denies Pain Type: N/A Pain Assessment Comments: Pt sleeping with even unlabored breathing. Datetime: 12/11/2017 02:00 Stage of : Antepartum Pain Presence: None/Denies Pain Type: N/A Pain Assessment Comments: PT SLEEPING WITH EVEN UNLABORED BREATHING. Datetime: 12/10/2017 23:37 Stage of : Antepartum Datetime: 12/10/2017 23:36 Stage of : Antepartum Contraction Comments: PT DENIES CRAMPING Monitor Mode: External US Comments: PT STATES + FM Pain Presence: None/Denies Pain Type: N/A Membrane Status: Intact Amniotic Fluid Amount: None Vaginal Bleeding: None Datetime: 12/10/2017 20:55 Stage of : Antepartum Pain Presence: None/Denies Pain Type: N/A Pain Assessment Comments: PT DENIES ANY NEEDS AT THIS TIME. Datetime: 12/10/2017 19:35 Stage of : Antepartum Assessment Type: Admission Assessment Maternal Assessment Level of Consciousness: Fully Conscious DTR's/Clonus: DTRs 2+; No Clonus Headache: Denies Blurred Vision: No Respiratory Effort: Unlabored; Regular Rhythm; Equal Expansion Breath Sounds, Left: Clear and Equal Breath Sounds, Right: Clear and Equal Nausea/Vomiting: Denies RUQ Epigastric Pain: Denies Lower Extremities Edema: None Degree: None Upper Extremities Edema: None Degree: None Facial Edema: None Fall Risk Assessment History of Falling: (0) No Secondary Diagnosis: (0) No Ambulatory Aid: (0) Bedrest/Nurse Assist IV Therapy: (0) No Gait: (0) Normal/Bedrest/Immobile Mental Status: (0) Oriented to Own Ability Fall Score: 0 Fall Risk Score Definition: No Risk: No action required Contraction Comments: PT DENIES CRAMMPING Heart Rate FHR Baseline Rate: 145 Monitor Mode: Doppler Comments: PT STATES + FM Pain Presence: None/Denies Pain Type: N/A Membrane Status: Intact Amniotic Fluid Amount: None Vaginal Bleeding: None Datetime: 12/10/2017 17:00 Stage of : Antepartum Maternal Assessment Level of Consciousness: Fully Conscious Headache: Denies Nausea/Vomiting: Denies RUQ Epigastric Pain: Denies Pain Assessment Pain Scale: 0 Pain Presence: None/Denies Vaginal Bleeding: None Datetime: 12/10/2017 16:00 Stage of : Antepartum Maternal Assessment Level of Consciousness: Fully Conscious Headache: Denies Nausea/Vomiting: Denies RUQ Epigastric Pain: Denies Pain Assessment Pain Scale: 0 Pain Presence: None/Denies Vaginal Bleeding: None Datetime: 12/10/2017 15:00 Stage of : Antepartum Maternal Assessment Level of Consciousness: Fully Conscious Headache: Denies Nausea/Vomiting: Denies RUQ Epigastric Pain: Denies Pain Assessment Pain Scale: 0 Pain Presence: None/Denies Vaginal Bleeding: None Datetime: 12/10/2017 14:48 Stage of : Antepartum Maternal Assessment Level of Consciousness: Fully Conscious Headache: Denies Nausea/Vomiting: Denies RUQ Epigastric Pain: Denies Temperature Route: Oral Resting Tone [place]: Relaxed Membrane Status: Intact Vaginal Bleeding: None Datetime: 12/10/2017 14:00 Stage of : Antepartum Maternal Assessment Level of Consciousness: Fully Conscious Headache: Denies Nausea/Vomiting: Denies RUQ Epigastric Pain: Denies Pain Assessment Pain Scale: 0 Pain Presence: None/Denies Vaginal Bleeding: None Datetime: 12/10/2017 12:00 Stage of : Antepartum Maternal Assessment Level of Consciousness: Fully Conscious Headache: Denies Nausea/Vomiting: Denies RUQ Epigastric Pain: Denies Pain Assessment Pain Scale: 0 Pain Presence: None/Denies Vaginal Bleeding: None Datetime: 12/10/2017 11:29 Maternal Assessment Level of Consciousness: Fully Conscious Headache: Denies Blurred Vision: No Respiratory Effort: Unlabored Nausea/Vomiting: Denies RUQ Epigastric Pain: Denies Pain Presence: None/Denies Datetime: 12/10/2017 11:00 Maternal Assessment Level of Consciousness: Fully Conscious Headache: Denies Blurred Vision: No Respiratory Effort: Unlabored Nausea/Vomiting: Denies RUQ Epigastric Pain: Denies Resting Tone [place]: Relaxed Pain Presence: None/Denies Datetime: 12/10/2017 10:52 Pain Presence: Intermittent Datetime: 12/10/2017 10:00 Stage of : Antepartum Maternal Assessment Level of Consciousness: Fully Conscious Headache: Denies Nausea/Vomiting: Denies RUQ Epigastric Pain: Denies Pain Assessment Pain Scale: 0 Pain Presence: None/Denies Vaginal Bleeding: None Datetime: 12/10/2017 09:00 Stage of : Antepartum Maternal Assessment Level of Consciousness: Fully Conscious Headache: Denies Nausea/Vomiting: Denies RUQ Epigastric Pain: Denies Pain Assessment Pain Scale: 0 Pain Presence: None/Denies Vaginal Bleeding: None Datetime: 12/10/2017 08:19 Stage of : Antepartum Maternal Assessment Level of Consciousness: Fully Conscious DTR's/Clonus: DTRs 2+; No Clonus Headache: Denies Nausea/Vomiting: Denies RUQ Epigastric Pain: Denies Resting Tone [place]: Relaxed Comments: ega 19.2 Pain Assessment Pain Scale: 0 Pain Presence: None/Denies Membrane Status: Intact Vaginal Bleeding: None Datetime: 12/10/2017 07:15 Assessment Type: Ongoing Assessment Maternal Assessment Level of Consciousness: Fully Conscious DTR's/Clonus: DTRs 2+; No Clonus Headache: Denies Blurred Vision: No Respiratory Effort: Unlabored; Regular Rhythm; Equal Expansion Respiratory Effort: Unlabored Breath Sounds, Left: Clear and Equal Breath Sounds, Right: Clear and Equal Nausea/Vomiting: Denies RUQ Epigastric Pain: Denies Lower Extremities Edema: None Degree: None Upper Extremities Edema: None Degree: None Facial Edema: None Fall Risk Assessment History of Falling: (0) No Secondary Diagnosis: (0) No Ambulatory Aid: (0) Bedrest/Nurse Assist Gait: (0) Normal/Bedrest/Immobile Mental Status: (0) Oriented to Own Ability Datetime: 12/10/2017 07:09 Stage of : Antepartum Datetime: 12/10/2017 05:40 Maternal Assessment Level of Consciousness: SLEEPING Temperature Route: Oral Pain Assessment Pain Scale: 0 Datetime: 12/09/2017 23:53 Maternal Assessment Level of Consciousness: Fully Conscious Temperature Route: Oral Pain Assessment Pain Scale: 0 Datetime: 12/09/2017 22:40 Maternal Assessment Level of Consciousness: Fully Conscious Pain Assessment Pain Scale: 0 Datetime: 12/09/2017 21:00 Maternal Assessment Level of Consciousness: Fully Conscious Pain Assessment Pain Scale: 0 Datetime: 12/09/2017 19:50 Assessment Type: Ongoing Assessment Maternal Assessment Level of Consciousness: Fully Conscious Maternal Assessment Level of Consciousness: Fully Conscious Headache: Denies Blurred Vision: No Respiratory Effort: Unlabored; Regular Rhythm; Equal Expansion Nausea/Vomiting: Denies RUQ Epigastric Pain: Denies Lower Extremities Edema: None Upper Extremities Edema: None Facial Edema: None Temperature Route: Oral Fall Risk Assessment History of Falling: (0) No Secondary Diagnosis: (0) No Ambulatory Aid: (0) Bedrest/Nurse Assist IV Therapy: (20) Yes Gait: (0) Normal/Bedrest/Immobile Mental Status: (0) Oriented to Own Ability Fall Score: 20 Fall Risk Score Definition: No Risk: No action required Pain Assessment Pain Scale: 0 Datetime: 12/09/2017 18:32 Stage of : Antepartum Maternal Assessment Level of Consciousness: Fully Conscious Headache: Denies Nausea/Vomiting: Denies Pain Presence: None/Denies Datetime: 12/09/2017 18:01 Pain Presence: None/Denies Datetime: 12/09/2017 17:39 Stage of : Antepartum Maternal Assessment Level of Consciousness: Fully Conscious Headache: Denies Nausea/Vomiting: Denies Resting Tone [place]: Relaxed Pain Presence: None/Denies Datetime: 12/09/2017 16:10 Stage of : Antepartum Temperature Route: Oral Datetime: 12/09/2017 16:01 Stage of : Antepartum Maternal Assessment Level of Consciousness: Fully Conscious Headache: Denies Blurred Vision: No Respiratory Effort: Unlabored Nausea/Vomiting: Denies Pain Presence: None/Denies Datetime: 12/09/2017 14:00 Stage of : Antepartum Maternal Assessment Level of Consciousness: Fully Conscious Headache: Denies Nausea/Vomiting: Denies Pain Assessment Pain Scale: 0 Pain Presence: None/Denies Vaginal Bleeding: None Datetime: 12/09/2017 13:00 Stage of : Antepartum Maternal Assessment Level of Consciousness: Fully Conscious Headache: Denies Nausea/Vomiting: Denies Pain Assessment Pain Scale: 0 Pain Presence: None/Denies Vaginal Bleeding: None Datetime: 12/09/2017 12:00 Stage of : Antepartum Maternal Assessment Level of Consciousness: Fully Conscious Headache: Denies Nausea/Vomiting: Denies Pain Assessment Pain Scale: 0 Pain Presence: None/Denies Vaginal Bleeding: None Datetime: 12/09/2017 11:45 Stage of : Antepartum Maternal Assessment Level of Consciousness: Fully Conscious Headache: Denies Nausea/Vomiting: Denies RUQ Epigastric Pain: Denies Resting Tone [place]: Relaxed Pain Assessment Pain Scale: 0 Pain Presence: None/Denies Vaginal Bleeding: None Datetime: 12/09/2017 10:00 Stage of : Antepartum Maternal Assessment Level of Consciousness: Fully Conscious Headache: Denies Nausea/Vomiting: Denies Pain Assessment Pain Scale: 0 Pain Presence: None/Denies Vaginal Bleeding: None Datetime: 12/09/2017 09:18 Stage of : Antepartum Maternal Assessment Level of Consciousness: Fully Conscious Headache: Denies Blurred Vision: No Respiratory Effort: Unlabored Nausea/Vomiting: Denies Resting Tone [place]: Relaxed Pain Assessment Pain Scale: 0 Pain Presence: None/Denies Vaginal Bleeding: None Datetime: 12/09/2017 07:57 Stage of : Antepartum Maternal Assessment Level of Consciousness: Fully Conscious Headache: Denies Blurred Vision: No Respiratory Effort: Unlabored Nausea/Vomiting: Denies RUQ Epigastric Pain: Denies Temperature Route: Oral Resting Tone [place]: Relaxed Comments: ega 19.1 Pain Assessment Pain Scale: 0 Pain Presence: None/Denies Vaginal Bleeding: None Datetime: 12/09/2017 07:12 Assessment Type: Ongoing Assessment Maternal Assessment Level of Consciousness: Fully Conscious Maternal Assessment Level of Consciousness: Fully Conscious DTR's/Clonus: DTRs 2+; No Clonus Headache: Denies Headache: Denies Blurred Vision: No Blurred Vision: No Respiratory Effort: Unlabored; Regular Rhythm; Equal Expansion Respiratory Effort: Unlabored Breath Sounds, Left: Clear and Equal Breath Sounds, Right: Clear and Equal Nausea/Vomiting: Denies Nausea/Vomiting: Denies RUQ Epigastric Pain: Denies Lower Extremities Edema: None Degree: None Upper Extremities Edema: None Degree: None Facial Edema: None Fall Risk Assessment History of Falling: (0) No Secondary Diagnosis: (0) No Ambulatory Aid: (0) Bedrest/Nurse Assist Gait: (0) Normal/Bedrest/Immobile Mental Status: (0) Oriented to Own Ability Pain Presence: None/Denies Datetime: 12/09/2017 05:53 Heart Rate FHR Baseline Rate: 145 Monitor Mode: External US Comments: FHT'S X2 MINUTES Datetime: 12/09/2017 05:45 Maternal Assessment Level of Consciousness: Fully Conscious Headache: Denies Blurred Vision: No Temperature Route: Oral Pain Presence: None/Denies Datetime: 12/09/2017 00:15 Stage of : Antepartum Maternal Assessment Level of Consciousness: SLEEPING Datetime: 12/08/2017 19:48 Stage of : Antepartum Assessment Type: Ongoing Assessment Maternal Assessment Level of Consciousness: Fully Conscious DTR's/Clonus: DTRs 2+; No Clonus Headache: Denies Blurred Vision: No Respiratory Effort: Unlabored; Regular Rhythm; Equal Expansion Breath Sounds, Left: Clear and Equal Breath Sounds, Right: Clear and Equal Nausea/Vomiting: Denies RUQ Epigastric Pain: Denies Lower Extremities Edema: None Degree: None Upper Extremities Edema: None Degree: None Facial Edema: None Temperature Route: Oral Fall Risk Assessment History of Falling: (0) No Secondary Diagnosis: (0) No Ambulatory Aid: (0) Bedrest/Nurse Assist IV Therapy: (0) No Gait: (0) Normal/Bedrest/Immobile Mental Status: (0) Oriented to Own Ability Fall Score: 0 Fall Risk Score Definition: No Risk: No action required Pain Presence: None/Denies Datetime: 12/08/2017 14:41 Heart Rate FHR Baseline Rate: 150 Comments: aga Datetime: 12/08/2017 14:40 Pain Presence: None/Denies Datetime: 12/08/2017 10:24 Pain Presence: None/Denies Datetime: 12/08/2017 07:27 Assessment Type: Ongoing Assessment Maternal Assessment Level of Consciousness: Fully Conscious DTR's/Clonus: DTRs 2+; No Clonus Headache: Denies Blurred Vision: No Respiratory Effort: Unlabored; Regular Rhythm; Equal Expansion Breath Sounds, Left: Clear and Equal Breath Sounds, Right: Clear and Equal Nausea/Vomiting: Denies RUQ Epigastric Pain: Denies Facial Edema: None Fall Risk Assessment History of Falling: (0) No Secondary Diagnosis: (0) No Ambulatory Aid: (0) Bedrest/Nurse Assist IV Therapy: (20) Yes Gait: (0) Normal/Bedrest/Immobile Mental Status: (0) Oriented to Own Ability Fall Score: 20 Fall Risk Score Definition: No Risk: No action required Datetime: 12/08/2017 07:26 Pain Presence: None/Denies Datetime: 12/08/2017 05:37 Maternal Assessment Level of Consciousness: Fully Conscious Headache: Denies Blurred Vision: No Temperature Route: Oral Pain Presence: None/Denies Datetime: 12/07/2017 21:51 Labor Evaluation Frequency: denies Heart Rate FHR Baseline Rate: 150 Monitor Mode: External US Datetime: 12/07/2017 19:28 Stage of : Antepartum Assessment Type: Ongoing Assessment Maternal Assessment Level of Consciousness: Fully Conscious DTR's/Clonus: DTRs 2+; No Clonus Headache: Denies Blurred Vision: No Respiratory Effort: Unlabored; Regular Rhythm; Equal Expansion Breath Sounds, Left: Clear and Equal Breath Sounds, Right: Clear and Equal Nausea/Vomiting: Denies RUQ Epigastric Pain: Denies Lower Extremities Edema: None Degree: None Upper Extremities Edema: None Degree: None Facial Edema: None Temperature Route: Oral Fall Risk Assessment History of Falling: (0) No Secondary Diagnosis: (0) No Ambulatory Aid: (0) Bedrest/Nurse Assist IV Therapy: (0) No Gait: (0) Normal/Bedrest/Immobile Mental Status: (0) Oriented to Own Ability Fall Score: 0 Fall Risk Score Definition: No Risk: No action required Pain Presence: None/Denies Datetime: 12/07/2017 18:29 Pain Presence: None/Denies Datetime: 12/07/2017 16:57 Pain Presence: None/Denies Datetime: 12/07/2017 11:42 Pain Presence: None/Denies Datetime: 12/07/2017 10:14 Stage of : Antepartum Maternal Assessment Level of Consciousness: Fully Conscious Headache: Denies Blurred Vision: No Nausea/Vomiting: Denies RUQ Epigastric Pain: Denies Facial Edema: None Pain Presence: None/Denies Pain Type: N/A Datetime: 12/07/2017 09:45 Heart Rate FHR Baseline Rate: 145 Monitor Mode: External US Variability: Moderate 6-25 bpm Accelerations: 15X15 Comments: FETALHEART TONES Datetime: 12/07/2017 09:44 Stage of : Antepartum Pain Presence: None/Denies Pain Type: N/A Datetime: 12/07/2017 08:21 Stage of : Antepartum Assessment Type: Ongoing Assessment Maternal Assessment Level of Consciousness: Fully Conscious DTR's/Clonus: DTRs 2+; No Clonus Headache: Denies Blurred Vision: No Respiratory Effort: Unlabored; Regular Rhythm; Equal Expansion Breath Sounds, Left: Clear and Equal Breath Sounds, Right: Clear and Equal Nausea/Vomiting: Denies RUQ Epigastric Pain: Denies Lower Extremities Edema: None Degree: None Upper Extremities Edema: None Degree: None Facial Edema: None Secondary Diagnosis: (0) No Ambulatory Aid: (0) Bedrest/Nurse Assist IV Therapy: (0) No Gait: (0) Normal/Bedrest/Immobile Mental Status: (0) Oriented to Own Ability Datetime: 12/07/2017 05:35 Stage of : Antepartum Maternal Assessment Level of Consciousness: Fully Conscious Headache: Denies Blurred Vision: No Temperature Route: Oral Pain Presence: None/Denies Datetime: 12/06/2017 22:00 Contraction Comments: PT DENIES FEELING ANY UC'S. Heart Rate FHR Baseline Rate: 148 Monitor Mode: External US Comments: FHT'S Q SHIFT 8 WEEKS APPROPRIATE FOR GA. Datetime: 12/06/2017 20:31 Stage of : Antepartum Assessment Type: Ongoing Assessment Maternal Assessment Level of Consciousness: Fully Conscious DTR's/Clonus: DTRs 2+; No Clonus Headache: Denies Blurred Vision: No Respiratory Effort: Unlabored; Regular Rhythm; Equal Expansion Breath Sounds, Left: Clear and Equal Breath Sounds, Right: Clear and Equal Nausea/Vomiting: Denies RUQ Epigastric Pain: Denies Lower Extremities Edema: None Degree: None Upper Extremities Edema: None Degree: None Facial Edema: None Temperature Route: Oral Fall Risk Assessment History of Falling: (0) No Secondary Diagnosis: (0) No Ambulatory Aid: (0) Bedrest/Nurse Assist IV Therapy: (0) No Gait: (0) Normal/Bedrest/Immobile Mental Status: (0) Oriented to Own Ability Fall Score: 0 Fall Risk Score Definition: No Risk: No action required Pain Presence: None/Denies Datetime: 12/06/2017 17:31 Pain Presence: None/Denies Datetime: 12/06/2017 12:10 Pain Presence: None/Denies Datetime: 12/06/2017 10:05 Heart Rate FHR Baseline Rate: 145 Comments: aga Pain Presence: None/Denies Datetime: 12/06/2017 08:48 Assessment Type: Ongoing Assessment Maternal Assessment Level of Consciousness: Fully Conscious DTR's/Clonus: DTRs 2+; No Clonus Headache: Denies Blurred Vision: No Respiratory Effort: Unlabored; Regular Rhythm; Equal Expansion Breath Sounds, Left: Clear and Equal Breath Sounds, Right: Clear and Equal Nausea/Vomiting: Denies RUQ Epigastric Pain: Denies Facial Edema: None Fall Risk Assessment History of Falling: (0) No Secondary Diagnosis: (0) No Ambulatory Aid: (0) Bedrest/Nurse Assist IV Therapy: (20) Yes Gait: (0) Normal/Bedrest/Immobile Mental Status: (0) Oriented to Own Ability Fall Score: 20 Fall Risk Score Definition: No Risk: No action required Datetime: 12/06/2017 07:15 Stage of : Antepartum Datetime: 12/06/2017 06:20 Stage of : Antepartum Datetime: 12/06/2017 05:49 Stage of : Antepartum Temperature Route: Oral Contraction Comments: PT DENIES CRAMPING Comments: PT STATES + FM Pain Presence: None/Denies Pain Type: N/A Membrane Status: Intact Amniotic Fluid Amount: None Vaginal Bleeding: None Datetime: 12/06/2017 04:40 Stage of : Antepartum Pain Presence: None/Denies Pain Type: N/A Pain Assessment Comments: PT REMAINS ASLEEP WITH EVEN UNLABORED BREATHING. Datetime: 12/06/2017 03:00 Stage of : Antepartum Pain Presence: None/Denies Pain Type: N/A Pain Assessment Comments: PT REMAINS ASLEEP WITH EVEN UNLABORED BREATHING Datetime: 12/06/2017 01:00 Stage of : Antepartum Pain Presence: None/Denies Pain Type: N/A Pain Assessment Comments: PT SLEEPING WITH EVEN UNLABORED BREATHING Datetime: 12/05/2017 23:49 Stage of : Antepartum Datetime: 12/05/2017 23:48 Stage of : Antepartum Temperature Route: Oral Pain Presence: None/Denies Pain Type: N/A Pain Assessment Comments: PT DENIES ANY PAIN OR BURNING ON URINATION Datetime: 12/05/2017 21:45 Stage of : Antepartum Pain Presence: None/Denies Pain Type: N/A Pain Assessment Comments: PT DENIES ANY NEEDS AT THIS TIME Datetime: 12/05/2017 20:30 Stage of : Antepartum Datetime: 12/05/2017 19:41 Stage of : Antepartum Assessment Type: Ongoing Assessment Maternal Assessment Level of Consciousness: Fully Conscious DTR's/Clonus: DTRs 2+; No Clonus Headache: Denies Blurred Vision: No Respiratory Effort: Unlabored; Regular Rhythm; Equal Expansion Breath Sounds, Left: Clear and Equal Breath Sounds, Right: Clear and Equal Nausea/Vomiting: Denies RUQ Epigastric Pain: Denies Lower Extremities Edema: None Degree: None Upper Extremities Edema: None Degree: None Facial Edema: None Temperature Route: Oral Fall Risk Assessment History of Falling: (0) No Secondary Diagnosis: (0) No Ambulatory Aid: (0) Bedrest/Nurse Assist IV Therapy: (0) No Gait: (0) Normal/Bedrest/Immobile Mental Status: (0) Oriented to Own Ability Fall Score: 0 Fall Risk Score Definition: No Risk: No action required Contraction Comments: PT DENIES CRAMPING Heart Rate FHR Baseline Rate: 150 Monitor Mode: Doppler Pain Presence: None/Denies Pain Type: N/A Membrane Status: Intact Amniotic Fluid Amount: None Vaginal Bleeding: None Datetime: 12/05/2017 19:30 Stage of : Antepartum Datetime: 12/05/2017 15:47 Temperature Route: Oral Datetime: 12/05/2017 09:19 Heart Rate FHR Baseline Rate: 150 Comments: HEART TONES IN THE 150'S APPROPRIATE FOR GA Datetime: 12/05/2017 08:17 Temperature Route: Oral Datetime: 12/05/2017 07:35 Assessment Type: Ongoing Assessment Maternal Assessment Level of Consciousness: Fully Conscious DTR's/Clonus: DTRs 2+; No Clonus Headache: Denies Blurred Vision: No Respiratory Effort: Unlabored; Regular Rhythm; Equal Expansion Breath Sounds, Left: Clear and Equal Breath Sounds, Right: Clear and Equal Nausea/Vomiting: Denies RUQ Epigastric Pain: Denies Lower Extremities Edema: Bilateral Lower Extremities Upper Extremities Edema: None Facial Edema: None Fall Risk Assessment History of Falling: (0) No Secondary Diagnosis: (0) No Ambulatory Aid: (0) Bedrest/Nurse Assist IV Therapy: (20) Yes Gait: (0) Normal/Bedrest/Immobile Mental Status: (0) Oriented to Own Ability Fall Score: 20 Fall Risk Score Definition: No Risk: No action required Datetime: 12/05/2017 07:15 Stage of : Antepartum Datetime: 12/05/2017 06:30 Stage of : Antepartum Datetime: 12/05/2017 05:53 Stage of : Antepartum Temperature Route: Oral Contraction Comments: PT DENIES CRAMPING Pain Presence: None/Denies Pain Type: N/A Membrane Status: Intact Amniotic Fluid Amount: None Vaginal Bleeding: None Datetime: 12/05/2017 03:30 Stage of : Antepartum Pain Presence: None/Denies Pain Type: N/A Pain Assessment Comments: PT SLEEPING WITH EVEN UNLABORED BREATHING Datetime: 12/05/2017 02:00 Stage of : Antepartum Pain Presence: None/Denies Pain Type: N/A Pain Assessment Comments: Pt sleeping with even unlabored breathing. Datetime: 12/04/2017 23:46 Stage of : Antepartum Temperature Route: Oral Datetime: 12/04/2017 22:39 Heart Rate FHR Baseline Rate: 145 Monitor Mode: Doppler Comments: PT STATES SHE FEELS THE BABY MOVE MORE WHEN SHE LAYS DOWN. Datetime: 12/04/2017 22:19 Stage of : Antepartum Temperature Route: Oral Pain Presence: None/Denies Pain Type: N/A Pain Assessment Comments: PT HAS NO NEEDS AT THIS TIME. Datetime: 12/04/2017 19:29 Stage of : Antepartum Assessment Type: Ongoing Assessment Maternal Assessment Level of Consciousness: Fully Conscious DTR's/Clonus: DTRs 2+; No Clonus Headache: Denies Blurred Vision: No Respiratory Effort: Unlabored; Regular Rhythm; Equal Expansion Breath Sounds, Left: Clear and Equal Breath Sounds, Right: Clear and Equal Nausea/Vomiting: Denies RUQ Epigastric Pain: Denies Lower Extremities Edema: None Degree: None Upper Extremities Edema: None Degree: None Facial Edema: None Temperature Route: Oral Fall Risk Assessment History of Falling: (0) No Secondary Diagnosis: (0) No Ambulatory Aid: (0) Bedrest/Nurse Assist IV Therapy: (0) No Gait: (0) Normal/Bedrest/Immobile Mental Status: (0) Oriented to Own Ability Fall Score: 0 Fall Risk Score Definition: No Risk: No action required Contraction Comments: PT DENIES CRAMPING Comments: PT STATES + FM Pain Presence: None/Denies Pain Type: N/A Membrane Status: Intact Amniotic Fluid Amount: None Vaginal Bleeding: None Datetime: 12/04/2017 19:00 Stage of : Antepartum Maternal Assessment Level of Consciousness: Fully Conscious Headache: Denies Nausea/Vomiting: Denies Pain Presence: None/Denies Datetime: 12/04/2017 18:04 Stage of : Antepartum Maternal Assessment Level of Consciousness: Fully Conscious Headache: Denies Nausea/Vomiting: Denies Pain Presence: None/Denies Datetime: 12/04/2017 17:52 Maternal Assessment Level of Consciousness: Fully Conscious Headache: Denies Blurred Vision: No Respiratory Effort: Unlabored Nausea/Vomiting: Denies Resting Tone [place]: Relaxed Pain Presence: None/Denies Datetime: 12/04/2017 17:02 Stage of : Antepartum Maternal Assessment Level of Consciousness: Fully Conscious Headache: Denies Blurred Vision: No Respiratory Effort: Unlabored Nausea/Vomiting: Denies Temperature Route: Oral Pain Presence: None/Denies Datetime: 12/04/2017 16:00 Stage of : Antepartum Maternal Assessment Level of Consciousness: Fully Conscious Headache: Denies Nausea/Vomiting: Denies RUQ Epigastric Pain: Denies Pain Presence: None/Denies Datetime: 12/04/2017 15:03 Contraction Comments: none Pain Presence: None/Denies Datetime: 12/04/2017 14:00 Stage of : Antepartum Maternal Assessment Level of Consciousness: Fully Conscious Headache: Denies Nausea/Vomiting: Denies RUQ Epigastric Pain: Denies Pain Presence: None/Denies Datetime: 12/04/2017 13:20 Maternal Assessment Level of Consciousness: Fully Conscious Headache: Denies Blurred Vision: No Respiratory Effort: Unlabored Nausea/Vomiting: Denies Resting Tone [place]: Relaxed Pain Presence: None/Denies Datetime: 12/04/2017 13:00 Stage of : Antepartum Maternal Assessment Level of Consciousness: Fully Conscious Headache: Denies Nausea/Vomiting: Denies RUQ Epigastric Pain: Denies Pain Presence: None/Denies Datetime: 12/04/2017 12:16 Pain Presence: None/Denies Datetime: 12/04/2017 12:00 Stage of : Antepartum Maternal Assessment Level of Consciousness: Fully Conscious Headache: Denies Nausea/Vomiting: Denies RUQ Epigastric Pain: Denies Pain Presence: None/Denies Datetime: 12/04/2017 10:44 Stage of : Antepartum Maternal Assessment Level of Consciousness: Fully Conscious Headache: Denies Nausea/Vomiting: Denies RUQ Epigastric Pain: Denies Resting Tone [place]: Relaxed Pain Presence: None/Denies Datetime: 12/04/2017 09:53 Maternal Assessment Level of Consciousness: Fully Conscious Headache: Denies Blurred Vision: No Respiratory Effort: Unlabored Breath Sounds, Left: Clear and Equal Breath Sounds, Right: Clear and Equal Nausea/Vomiting: Denies RUQ Epigastric Pain: Denies Resting Tone [place]: Relaxed Pain Presence: None/Denies Datetime: 12/04/2017 09:02 Assessment Type: Admission Assessment Vaginal Bleeding: None Maternal Assessment Level of Consciousness: Fully Conscious DTR's/Clonus: DTRs 2+; No Clonus Headache: Denies Blurred Vision: No Respiratory Effort: Unlabored; Regular Rhythm; Equal Expansion Breath Sounds, Left: Clear and Equal Breath Sounds, Right: Clear and Equal Nausea/Vomiting: Denies RUQ Epigastric Pain: Denies Facial Edema: None Fall Risk Assessment History of Falling: (0) No Secondary Diagnosis: (0) No Ambulatory Aid: (0) Bedrest/Nurse Assist IV Therapy: (0) No Gait: (0) Normal/Bedrest/Immobile Mental Status: (0) Oriented to Own Ability Fall Score: 0 Fall Risk Score Definition: No Risk: No action required Datetime: 12/04/2017 09:01 Time of Arrival: 12/04/2017 08:49 EGA: 18.3 Arrived By: Ambulatory
[2018-05-05] MEDS: LACTATED RINGER'S 1,000 ML IV SCH ×2 (11:24→18:31)
[2018-05-06] MEDS: LACTATED RINGER'S 1,000 ML IV SCH ×4 (02:31→12:19)
[2018-05-06] MEDS ORDERED: OXYTOCIN 30 UNITS/LR 500 ML IV SCH (07:00)
--- NOTE | 2018-05-06 07:59 | PREAC ---
Date/Time of Note Date/Time of Note DATE: 05/06/18 TIME: 07:58 Anesthesia Eval and Record Evaluation Time Pre-Procedure Interview DATE: 05/06/18 TIME: 07:58 Age 38 Sex female NPO: 8 hrs Preoperative diagnosis intrauterine Planned procedure labor epidural Past Medical History Past Medical History: Includes : : (6), Para: (4), Gestational age: (40.2) Surgery & Anesthesia Issues No known issue Meds Anticoagulation: No Beta Leslie within 24 hr: No Reason Beta Leslie not given: Pt. not on B-Leslie Current Medications Lactated Ringer's 1,000 ml @ 125 mls/hr Q8H IV Last administered on 05/06/18at 07:41; Admin Dose 125 MLS/HR; Start 05/05/18 at 10:20 Butorphanol Tartrate (Stadol) 2 mg Q2H PRN IV .PAIN; Start 05/05/18 at 10:30 Lidocaine (Xylocaine 1% (Mpf)) 30 ml ONCE PRN INJ .EPISIOTOMY; Start 05/05/18 at 10:30 Oxytocin/Lactated Ringer's 500 ml @ 500 mls/hr ONCE POST IV ; Start 05/05/18 at 10:30 Oxytocin/Lactated Ringer's 500 ml @ 125 mls/hr POST IV ; Start 05/05/18 at 10:30 Ibuprofen (Motrin) 600 mg ONCE PRN PO .PAIN 1-5; Start 05/05/18 at 10:30 Oxytocin/Lactated Ringer's 500 ml @ 0 mls/hr ONCE PRN IV .VAGINAL BLEEDING; Start 05/05/18 at 10:30 Methylergonovine Maleate (Methergine) 0.2 mg ONCE PRN IM .VAGINAL BLEEDING; Start 05/05/18 at 10:30 Carboprost Tromethamine (Hemabate) 250 mcg ONCE PRN IM .VAGINAL BLEEDING; Start 05/05/18 at 10:30 Misoprostol (Cytotec) 1,000 mcg ONCE PRN FL .VAGINAL BLEEDING; Start 05/05/18 at 10:30 Oxytocin/Lactated Ringer's 500 ml @ 0 mls/hr Q0M IV Last administered on 05/06/18at 07:08; Admin Dose 0 MLS/HR; Start 05/06/18 at 07:00 Meds reviewed: Yes Allergies Coded Allergies: No Known Allergy (Unverified , 05/05/18) Allergies Reviewed: Yes Labs/Studies Labs Reviewed: Reviewed by anesthesiologist Result Diagram: 05/05/18 1115 Laboratory Tests 05/05/18 11:15 Blood Bank Test 05/05/18 11:15 Antibody Screen NEGATIVE Blood Type A POSITIVE Rh Immune Globulin Candidate NO test: N/A Pre-procedure Exam Last vitals Vital Signs Date Temp Pulse Resp B/P (MAP) Pulse Ox O2 O2 Flow FiO2 Time Delivery Rate 05/05/18 98.9 76 18 103/67 Room Air 10:39 (79) Airway: Adequate mouth opening, Adequate thyromental dist Mallampati: Mallampati II Teeth: Normal Lung: Normal Heart: Normal ASA Physical Status ASA physical status: 2 Emergency: None Planned Anesthetic Neuraxial: Epidural Planned Pain Management Epidural, Parenteral pain med Pre-operative Attestations Prior to commencing anesthesia and surgery, the patient was re-evaluated, there was verification of: *The patient's identity *The results of appropriate recent lab work and preoperative vital signs *The above evaluation not changing prior to induction *Anesthetic plan, risk benefits, alternative and complications discussed with patient/family; questions answered; patient/family understands, accepts and wishes to proceed. MARIA ISABEL RANDOLPH MD May 06, 2018 07:59
[2018-05-06] MEDS ORDERED: FENTAnyl 2MCG/ML-ROPIV 0.2% 100 ML ONE (08:03)
--- NOTE | 2018-05-06 08:44 | PAC ---
Date/Time of Note Date/Time of Note DATE: 05/06/18 TIME: 08:43 Post-Anesthesia Notes Post-Anesthesia Note Last documented vital signs Vital Signs Date Temp Pulse Resp B/P (MAP) Pulse Ox O2 O2 Flow FiO2 Time Delivery Rate 05/05/18 98.9 76 18 103/67 Room Air 10:39 (79) Activity: WNL Respiratory function: WNL Cardiovascular function: WNL Mental status: Baseline Pain reasonably controlled: Yes Hydration appropriate: Yes Nausea/Vomiting absent: Yes Comments BP: 118/64 HR: 82 RR: 16 T: 98.9 SaO2: 99% MARIA ISABEL RANDOLPH MD May 06, 2018 08:44
[2018-05-06] MEDS ORDERED: ONDANSETRON 4 MG INJ IV PRN (09:00)
[2018-05-06] MEDS ORDERED: FENTAnyl 2MCG/ML-ROPIV 0.2% 100 ML BAG EPI SCH (09:00)
[2018-05-06] MEDS ORDERED: NALOXONE (0.4 MG/ML) INJ IV PRN (09:00)
[2018-05-06] MEDS ORDERED: DIPHENHYDRAMINE 50 MG INJ IV PRN (09:00)
--- NOTE | 2018-05-06 12:04 | HP ---
Date/Time of Note Date/Time of Note DATE: 05/06/18 TIME: 12:03 OB - History Hx of Present Chief Complaint: post date Estimated Due Date: May 04, 2018 : 6 Para: 5 Spontaneous : 0 Therapeutic : 0 Care: Good Care Obstetrical Complications: None Medical Complications: None Past Family/Social History * Past Medical, Surgical, Family and Obstetric Histories reviewed from chart. GBS Status: Negative OB Admission Exam Vital Signs Vital Signs Vital Signs Date Temp Pulse Resp B/P (MAP) Pulse Ox O2 O2 Flow FiO2 Time Delivery Rate 05/05/18 98.9 76 18 103/67 Room Air 10:39 (79) Physical Exam HEENT: WNL Heart: Rhythm Normal Lungs: Clear, Equal Abdomen: WNL Extremities: Normal Reflexes: Normal Cervical Dilatation: 3cm Effacement: 50% Station: -1 Membranes: Intact Heart Rate: 120's Accelerations: Accelerations Present Decelerations: No Decelerations Varibility: Moderate Last 72 hours Lab Results CBC & BMP 05/05/18 11:15 OB Assessment/Plan Reason for admission: induction of labor Plan: Induction Induction Method: per Pitocin Protocol JAIDA BOOGIE MD May 06, 2018 12:04
[2018-05-06] MEDS ORDERED: MINERAL OIL LIGHT 10 ML VIAL ONE (13:37)
[2018-05-06] MEDS ORDERED: MINERAL OIL LIGHT 10 ML VIAL TOP ONE (14:00)
--- NOTE | 2018-05-06 14:40 | LDN ---
Date/Time of Note Date/Time of Note DATE: 05/06/18 TIME: 14:36 Delivery Summary over intact perineum Weeks of Gestation 40 weeks and 2 days Placenta Delivered: Spontaneously Meconium: none Episiotomy: No Laceration repair: Vaginal laceration and first degree perineal laceration repaired with 3-0 Vicryl and 3-0 chromic. Anesthesia type: Epidural Estimated blood loss: 300 Sponge & Needle done & correct: Yes All needle counts correct: Yes Any foreign bodies felt in the: No Delivery Information Sex Sex: male Apgars 1 Minute: 9 5 Minute: 9 Suctioning Nose & mouth suctioned at joe: No Delee suction performed: No Umbilical Cord Umbilical cord with: 3 Vessels Cord presentations: no nuchal cord Cord Blood was obtained: Yes Mother & Baby Disposition Disposition Mom & Baby to Maternity; Good: Yes JAIDA BOOGIE MD May 06, 2018 14:40
[2018-05-06] MEDS ORDERED: MISOPROSTOL 200 MCG TAB PR PRN ×2 (15:00→16:30)
[2018-05-06 16:10] VITALS: BP 118/57; PULSE 68; RESP 18
[2018-05-06] MEDS ORDERED: LACTATED RINGER'S 1,000 ML IV* SCH (16:18)
[2018-05-06] MEDS ORDERED: METHYLERGONOVINE 0.2 MG INJ IM PRN (16:30)
[2018-05-06] MEDS ORDERED: CARBOPROST 250 MCG INJ IM PRN (16:30)
[2018-05-06] MEDS ORDERED: OXYTOCIN 30 UNITS/LR 500 ML IV PRN (16:30)
[2018-05-06 16:40] VITALS: BP 126/58; PULSE 74; RESP 18
[2018-05-06 17:40] VITALS: BP 114/74; PULSE 68; RESP 20
[2018-05-06] MEDS: WITCH HAZEL/GLYCERIN PAD PR PRN (18:03)
[2018-05-06] MEDS: DIBUCAINE 1% 30 GM OINT TOP PRN (18:03)
[2018-05-06] MEDS: IBUPROFEN 600 MG TAB PO SCH (18:03)
[2018-05-06] MEDS: BENZOCAINE 20% 56 ML SPRAY TOP PRN (18:03)
--- NOTE | 2018-05-06 18:40 | NUR ---
EOSS: PT IS IN STABLE CONDITION, VSS, DENIES PAIN AT THIS TIME. PT VOIDED ONE TIME WITHOUT DIFFICULTY, BONDING WITH THE BABY WELL.
[2018-05-06 20:15] VITALS: BP 100/59; PULSE 72; RESP 18
[2018-05-06] MEDS: SENNA/DOCUSATE NA (8.6MG/50MG) TAB PO SCH (20:58)
[2018-05-06] MEDS: HYDROCODONE/APAP (5/325) TAB PO PRN (22:27)
[2018-05-07] VITALS: BP 100/55; PULSE 66; RESP 18
[2018-05-07 04:15] VITALS: BP 98/58; PULSE 65; RESP 18
--- NOTE | 2018-05-07 05:12 | NUR ---
EOSS: Pt is in stable condition. No distress noted. Fundus firm with scant to small amount lochia noted. Bonding well with baby.
[2018-05-07] MEDS: IBUPROFEN 600 MG TAB PO SCH ×5 (05:46→23:39)
[2018-05-07 08:00] VITALS: BP 82/55; PULSE 65; RESP 18
[2018-05-07] MEDS: SENNA/DOCUSATE NA (8.6MG/50MG) TAB PO SCH ×2 (09:30→21:00)
[2018-05-07] MEDS: HYDROCODONE/APAP (5/325) TAB PO PRN ×2 (09:38→18:47)
--- NOTE | 2018-05-07 13:30 | DS ---
Date/Time of Note Date/Time of Note DATE: 05/07/18 TIME: 13:30 Obstetrical Discharge Record Final Diagnosis Final Diagnosis: Term delivered Vaginal Delivery Obstetrical Delivery: Spontaneous Condition on Discharge Physical Assessment Voiding: Yes Bowel Movement: Yes Breast: Soft, non-tender, Filling Fundus: Firm Calf Tenderness: No Patient Condition: Stable JAIDA BOOGIE MD May 07, 2018 13:30
[2018-05-07 15:52] VITALS: BP 113/86; PULSE 86; RESP 20
[2018-05-07 20:20] VITALS: BP 128/73; PULSE 80; RESP 18
[2018-05-07] MEDS: ACETAMINOPHEN 325 MG TAB PO PRN (23:41)
[2018-05-08] VITALS (8 sets, daily range): BP systolic 85–150; BP diastolic 54–72; PULSE 76–131; RESP 16–18
[2018-05-08] MEDS: IBUPROFEN 600 MG TAB PO SCH ×4 (05:38→23:42)
[2018-05-08] MEDS: SENNA/DOCUSATE NA (8.6MG/50MG) TAB PO SCH ×2 (08:35→21:31)
[2018-05-08] MEDS: BENZOCAINE 20% 56 ML SPRAY TOP PRN (08:35)
[2018-05-08] MEDS: WITCH HAZEL/GLYCERIN PAD PR PRN (08:35)
[2018-05-08] MEDS ORDERED: DIPHTH/TET/ACEL PERTUSS (ADULT) 0.5 ML VIAL IM* ONE (09:00)
[2018-05-08] MEDS: HYDROCODONE/APAP (5/325) TAB PO PRN (10:07)
--- NOTE | 2018-05-08 11:42 | NUR ---
SPOKE TO DR BOOGIE AND NOTIFIED ABOUT PATIENT'S CONDITION. PATIENT HAVING CHILLS, TEMPERATURE OF 101.5, BLOOD PRESSURE OF 150/72 AND PULSE OF 112. RECEIVED ORDERS TO CANCEL DISCHARGE, CBC, BLOOD CULTURE X2 15 MINUTES APART, CMP, URIC ACID, START IV LR 125CC/HR THEN AFTER BLOOD CULTURE COLLECTED START PT ON ZOSYN 3.375GM Q6HRS.
--- NOTE | 2018-05-08 12:00 | NUR ---
ATTEMPTED TO INSERT IV ON LT HAND BUT DID NOT WORK. WILL HAVE ANOTHER RN TRY TO INSERT IT.
--- NOTE | 2018-05-08 12:40 | NUR ---
PATIENT TAKEN BY TRANSPORT VIA WHEELCHAIR TO RADIOLOGY.
[2018-05-08] MEDS: LACTATED RINGER'S 1,000 ML IV SCH ×2 (13:14→20:00)
[2018-05-08] MEDS: PIPER-TAZO 3.375 GM IV (PMX) 100 ML IVPB SCH ×3 (13:45→23:42)
[2018-05-08] MEDS: ACETAMINOPHEN 325 MG TAB PO PRN (15:03)
--- NOTE | 2018-05-08 15:25 | NUR ---
PROVIDED PATIENT WITH PLENTI OF FLUIDS AND ENCOURAGED PATIENT TO CONTINUE DRINKING PLENTI OF FLUIDS.
--- NOTE | 2018-05-08 15:28 | NUR ---
PAGED DR BOOGIE
--- NOTE | 2018-05-08 15:33 | NUR ---
SPOKE TO DR BOOGIE AND NOTIFIED ABOUT PATIENT'S LAB RESULTS, CHEST X-RAY, CMP AND ELEVATED HEART RATE OF 135. RECEIVED ORDERS FOR A 12 LEAD EKG AND KEEP IV FLUIDS CONTINUOUS AT 125CC/HR.
--- NOTE | 2018-05-08 16:00 | NUR ---
SPOKE TO DR BOOGIE AND NOTIFIED ABOUT 12 LEAD EKG SHOWING ABNORMAL EKG. RECEIVED ORDERS FOR ECHO AND DR BOOGIE WILL CALL THE [employer] ENGAGEMENT PLANNING OPERATOR.
--- NOTE | 2018-05-08 16:53 | NUR ---
DR HYATT CONCRETE MIXER OPERATOR HELPER HERE TO SEE PATIENT.
--- NOTE | 2018-05-08 17:05 | NUR ---
[employer] MICROSCOPIST HERE.
--- NOTE | 2018-05-08 17:56 | CONS ---
DATE OF ADMISSION: 05/05/2018 DATE OF CONSULTATION: 05/08/2018 TYPE OF CONSULTATION: Cardiology. REASON FOR CONSULTATION: Tachycardia. REQUESTING PHYSICIAN: Jaida Boogie MD HISTORY OF PRESENT ILLNESS: Ms. Keenan is a 38-year-old female G6, P6 now who is status post normal spontaneous vaginal delivery of a healthy . Postoperatively, the patient has developed fevers at 100.5 and in this setting, has developed tachycardia to the 130s. Given these findings, cardiac consultation was requested. Additionally, the patient has undergone a 12-lead EKG revealing left atr ial enlargement. The patient at this time denies chest pain, shortness of breath. States she has mi ld palpitations and throughout her , felt mild palpitations that last seconds. The patient denied any associated syncope, chest pains or shortness of breath. PAST MEDICAL HISTORY: As above in HPI. MEDICATIONS CURRENTLY IN HOSPITAL: 1. Lactated Ringer's. 2. Zosyn. 3. Colace. 4. Motrin 600 mg p.o. q.6. 5. [place] p.r.n. ALLERGIES: NO KNOWN DRUG ALLERGIES. SOCIAL HISTORY: No current tobacco, EtOH or illicit drug use. FAMILY HISTORY: No history of sudden cardiac or early CAD. REVIEW OF SYSTEMS: As above in HPI. CONSTITUTIONAL: Positive fevers, chills. PULMONARY: No current shortness of breath. CARDIOVASCULAR: Tachycardia. GASTROINTESTINAL: No vomiting. GENITOURINARY: Status post delivery. MUSCULOSKELETAL: No significant myalgias or arthralgias. ENDOCRINE: No documented history of diabetes mellitus or thyroid disease. PSYCHIATRIC: No documented psych history. NEUROLOGIC: No documented history of CVA. PHYSICAL EXAMINATION VITAL SIGNS: Temperature of 99.2, blood pressure most recently 103/60, pulse 119, respiratory rate 1 8. GENERAL: The patient is alert, awake, in no acute distress. NECK: JVP approximately is 8 cm of water. CHEST: Fair air movement throughout. HEART: Tachycardic, regular rhythm, normal S1, S2, I/ systolic murmur, nondisplaced PMI. ABDOMEN: Positive bowel sounds, soft. EXTREMITIES: Trace edema, 1+ pulses bilateral posterior tibial. LABORATORY DATA: Most recently from today, white count 11.3, hemoglobin 9.6, platelet count 190 from 05/08/2018. Sodium 137, potassium 4.0, creatinine 0.6, BUN 8. AST 27, ALT 18. IMAGING STUDIES: As above in HPI. No further imaging studies for my review at this time. ELECTROCARDIOGRAM: As above in HPI. No further electrocardiograms for my review at this time. IMPRESSION: 1. Tachycardia consistent with sinus tachycardia in the setting of high fevers at this time. No sig nificant shortness of breath. No significant asymmetric lower extremity edema. 2. Abnormal electrocardiogram, left atrial abnormality and nonspecific ST and T-wave abnormalities. 3. Fevers. 4. Status post normal spontaneous vaginal delivery. 5. Anemia. RECOMMENDATIONS: 1. At this time, we would continue to give the patient IV fluid hydration, following heart rate clos vincent. 2. Continue to treat the patient's fevers aggressively and continue antibiotics and follow up all cu lture data. 3. We will check a TSH to be sure subclinical hyperthyroidism is not contributing to bouts of tachyc ardia in addition to high fevers. 4. Check a D-dimer, although this may be somewhat misleading in the setting of to assess f or any possibility of DVT, PE unlikely and consider venous ultrasound as she does have a likely etiol ogy with fevers. We will treat fevers and follow heart rate response first. 5. Check a 2D echo for assess the patient's ejection fraction, wall motion and assess left atrial si ze. Thank you for allowing me to take part in the care of this patient. I will continue to follow her ve ry closely with you with further recommendations to be made as the [facility] Dictated By: JACK BURGOS/GAY Conf#: [id number] DID#: [id number] CC: JAIDA BOOGIE MD;*EndCC*
--- NOTE | 2018-05-08 18:19 | QN ---
Documentation Comment Patient had an episode of chills this morning and had Temp of 101 T 100.5 HR 120's-130's Fundus firm Discharge order is cancelled Blood culture Urine culture IV Zosyn Cardiology consult JAIDA BOOGIE MD May 08, 2018 18:19
[2018-05-08] MEDS: DIBUCAINE 1% 30 GM OINT TOP PRN (18:31)
--- NOTE | 2018-05-08 18:59 | NUR ---
SPOKE TO DR HYATT REGARDING PATIENT'S D-DIMER RESULTS OF 954.77 AND RECEIVED ORDERS FOR VENOUS LE BILATERAL U/S.
--- NOTE | 2018-05-08 20:00 | NUR ---
put on pneumatic stockings Addendum: 05/08/18 at 2104 by RUTH BLACK RN Amended: Links added.
[2018-05-09] MEDS: LACTATED RINGER'S 1,000 ML IV SCH ×3 (04:00→16:01)
[2018-05-09 04:20] VITALS: BP_SYST 109; BP_SYST 98; BP_DIAS 66; BP_DIAS 68; PULSE 100; RESP 18
[2018-05-09] MEDS: ACETAMINOPHEN 325 MG TAB PO PRN ×2 (04:35→18:49)
--- NOTE | 2018-05-09 05:45 | NUR ---
patiint had temperature 100.8, PATIENT with double blanket on, Motrin 600mg as ordered given
[2018-05-09] MEDS: IBUPROFEN 600 MG TAB PO SCH ×4 (05:48→23:56)
[2018-05-09] MEDS: PIPER-TAZO 3.375 GM IV (PMX) 100 ML IVPB SCH ×4 (05:49→23:56)
[2018-05-09 08:15] VITALS: BP 90/60; PULSE 80; RESP 20
[2018-05-09] MEDS: SENNA/DOCUSATE NA (8.6MG/50MG) TAB PO SCH ×2 (08:40→20:43)
--- NOTE | 2018-05-09 10:11 | RADRPT ---
Echocardiogram Report Patient Name: PURNIMA REYESPatient ID: [id number] : [id number] Date: 05/08/2018 5:05:27 PM Gender: FAccession #: [id number] Tech: Ingrid Batres SHAGUFTA Location: [facility] Ref.Physician: JAIDA BOOGIE Height(Cm): BSA: Weight(Kg): Quality: GoodAccount #: Procedures: Echocardiographic Report: Transthoracic echocardiogram with complete 2D, M-Mode, and doppler examination. Indications: Abnormal EKG. Tachycardia. Measurements: 2D/M Mode Doppler Measurement Value Normal Ranges Measurement Value Normal Ranges LVIDd 2D 4.5 [ 3.5 - 5.6 ] cm AV Peak Martínez 2.3 m/sec LVIDs 2D 2.7 [ 2.1 - 4.1 ] cm AV Peak PG 21.0 mmHg LVPWd 2D 0.9 [ 0.6 - 1.1 ] cm LVOT Peak Martínez 1.5 m/sec IVSd 2D 0.9 [ 0.6 - 1.1 ] cm LVOT Peak PG 10.0 mmHg AoR Diam 2D 2.7 [ 2.0 - 3.7 ] cm MV E Peak Martínez 1.0 m/sec LA/Ao 2D 1 ratio MV A Peak Martínez 0.7 m/sec LA Dimen 2D 3.1 [ 2.3 - 4.0 ] cm MV E/A 1.4 ratio MV Decel Time 102 msec Lat E` Martínez 0.1 m/sec Lateral E/E` 7.1 ratio MV E/A 1.4 ratio TR Peak Martínez 2.5 m/sec TR Peak PG 24.0 mmHg RVSP 27.0 mmHg RA Pressure 3.0 Findings: Left Ventricle: Normal left ventricular systolic function. Normal left ventricular cavity size. Normal left ventricular wall thickness. Right Ventricle: Normal right ventricular size. Normal right ventricular systolic function. Left Atrium: The left atrium is normal in size. Right Atrium: The right atrium is normal in size. Mitral Valve: Normal appearance and function of the mitral valve with trace physiologic regurgitation. Aortic Valve: Normal appearance of the aortic valve. No significant aortic stenosis or insufficiency. Tricuspid Valve: Normal appearance and function of the tricuspid valve with trace physiologic regurgitation. Normal right ventricular systolic pressure. Estimated peak PA systolic pressure 27 mmHg. Pulmonic Valve: Normal pulmonic valve appearance. Pericardium: Normal pericardium with no significant pericardial effusion. Aorta: Normal aortic root. IVC: Normal size and normal respiratory collapse consistent with normal right atrial pressure. Conclusions: Normal left ventricular systolic function. Normal left ventricular cavity size. Normal left ventricular wall thickness. Normal appearance and function of the mitral valve with trace physiologic regurgitation. Normal appearance and function of the tricuspid valve with trace physiologic regurgitation. Normal right ventricular systolic pressure. Estimated peak PA systolic pressure 27 mmHg. Electronically Signed By: Juanjose Macdonald 2018-05-09 10:10:22 PST CC: CC:
[2018-05-09 12:10] VITALS: BP 94/63; PULSE 74; RESP 18
[2018-05-09 16:00] VITALS: BP 105/67; PULSE 82; RESP 20
[2018-05-09 16:12] VITALS: BP 105/67; PULSE 82; RESP 20
--- NOTE | 2018-05-09 17:50 | NUR ---
PATIENT HAVING CHILLS EPISODE. TEMPERATURE 98.7, BP: 111/57, P: 100, 99% O2SAT ROOM AIR. PROVIDED PATIENT WITH FLUIDS.
--- NOTE | 2018-05-09 18:51 | NUR ---
PATIENT HAVING TEMPERATURE OF 100.3 ORALLY. TYLENOL 650MG PO GIVEN. ENCOURAGED PATIENT TO DRINK PLENTI OF FLUIDS. PROVIDED WITH ICE PACKS.
--- NOTE | 2018-05-09 19:01 | NUR ---
NOTIFIED DR BOOGIE ABOUT PATIENT'S TEMPERATURE OF 103, BP 135/60, P 103. ALSO NOTIFIED ABOUT UC RESULTS. RECEIVED ORDERS FOR REPEAT BLOOD CULTURE X2, AND STAT CBC.
--- NOTE | 2018-05-09 19:25 | NUR ---
DR Goncalves here, seen the Patient, BC done times one done
--- NOTE | 2018-05-09 19:45 | QN ---
Documentation Comment Patient with chills. No other complaint T 103 VSS Fundus firm Lochia scant Will repeat blood cultures and CBC Continue IV JAIDA Oneil MD May 09, 2018 19:45
[2018-05-09 19:50] VITALS: BP 105/66; PULSE 88; RESP 18
[2018-05-09] MEDS ORDERED: MAGNESIUM HYDROXIDE 30ML CUP PO ONE (20:00)
--- NOTE | 2018-05-10 00:02 | NUR ---
Patient afebrile 98.F, denies discomfort, will continue plan of care
[2018-05-10] MEDS: LACTATED RINGER'S 1,000 ML IV SCH ×2 (02:45→12:52)
[2018-05-10 02:50] VITALS: BP 106/68; PULSE 66; RESP 18
--- NOTE | 2018-05-10 04:50 | NUR ---
eoss; Patient stable, denies pain,Vitals with in normal, bonding, with the Infant, may going home today with the Infant
[2018-05-10] MEDS: IBUPROFEN 600 MG TAB PO SCH ×4 (06:00→23:23)
[2018-05-10] MEDS: PIPER-TAZO 3.375 GM IV (PMX) 100 ML IVPB SCH ×3 (06:03→18:12)
[2018-05-10 08:00] VITALS: BP 108/69; PULSE 69
--- NOTE | 2018-05-10 09:35 | QN ---
Documentation Comment No complaint Afebrile VSS Abdomen soft Await culture results Continue IV JAIDA Oneil MD May 10, 2018 09:35
[2018-05-10] MEDS: SENNA/DOCUSATE NA (8.6MG/50MG) TAB PO SCH ×2 (10:05→22:16)
--- NOTE | 2018-05-10 12:44 | NUR ---
Dr. Goncalves notified that lab called re: presence of E.Coli in urine. MD also ordered to reduce current rate of IV to 50/ml/hr. Addendum: 05/10/18 at 1245 by IZABELA SCHRADER RN Amended: Links added.
--- NOTE | 2018-05-10 15:33 | CONS ---
Assessment/Plan Assessment/Plan Hospital Course (Demo Recall) IMPRESSION: 1. Tachycardia consistent with sinus tachycardia in the setting of high fevers at this time. No significant shortness of breath. No significant asymmetric lower extremity edema.-now improved with defervescence of fever and IVF hydration. Echo thuis admit with NL EF. No sig valve abnl. NL TSH 2. Abnormal electrocardiogram, left atrial abnormality and nonspecific ST and T-wave abnormalities.-LA size wnl by echo 3. Fevers-recurrent 05/09 4. Status post normal spontaneous vaginal delivery. 5. Anemia. 6. UTI Recc: -Continue abx's and f/u cx data -continue IVF hydration -OK for d/c planning from cardiac stndpoint Consultation Date/Type/Reason Admit Date/Time May 05, 2018 at 10:10 Initial Consult Date 05/08/18 Type of Consult Cardiology Reason for Consultation tachycardia Requesting Provider: JAIDA BOOGIE MD Date/Time of Note DATE: 05/10/18 TIME: 15:30 Exam/Review of Systems Vital Signs Vitals Vital Signs Date Temp Pulse Resp B/P (MAP) Pulse Ox O2 O2 Flow FiO2 Time Delivery Rate 05/10/18 97.2 69 108/69 Room Air 08:00 (82) 05/10/18 18 02:50 05/09/18 100 04:20 Intake and Output 05/09/18 05/09/18 05/10/18 1515:00 23:00 07:00 IntakeIntake Total 100 ml 950 ml BalanceBalance 100 ml 950 ml Exam Exam Review of Systems: CONSTITUTIONAL: No fevers, chills. PULMONARY: No sob CARDIOVASCULAR: No chest pain/palpitations GASTROINTESTINAL: No nausea/vomiting. GENITOURINARY: No hematuria/dysuria. MUSCULOSKELETAL: No myagias/arthalgias. PSYCHIATRIC: The patient denies depression. NEUROLOGIC: No weakness Constitutional: alert Psych: no complaints Head: normocephalic ENMT: mucosa pink and moist Neck: supple, jvd (9 cm water) Respiratory: clear to auscultation Cardiovascular: regular rate and rhythm Gastrointestinal: soft, non-tender Musculoskeletal: muscle tone (normal) Extremities: edema (trace/B) Neurological: other (no focal deficits) Labs Result Diagram: 05/09/18 1926 05/08/18 1202 Results 24hrs Laboratory Tests Test 05/09/18 19:26 White Blood Count 12.4 H Red Blood Count 2.97 L Hemoglobin 9.0 L Hematocrit 26.7 L Mean Corpuscular Volume 89.9 Mean Corpuscular Hemoglobin 30.3 Mean Corpuscular Hemoglobin Concent 33.7 Red Cell Distribution Width 14.6 H Platelet Count 186 Mean Platelet Volume 9.2 Immature Granulocytes % 1.000 H Neutrophils % 84.6 H Lymphocytes % 7.6 L Monocytes % 6.2 Eosinophils % 0.4 Basophils % 0.2 Nucleated Red Blood Cells % 0.0 Immature Granulocytes # 0.120 H Neutrophils # 10.5 H Lymphocytes # 0.9 Monocytes # 0.8 Eosinophils # 0.1 Basophils # 0.0 Nucleated Red Blood Cells # 0.0 Medications Medications Current Medications Ibuprofen (Motrin) 600 mg Q6 PO Last administered on 05/10/18 13:00; Admin Dose 600 MG; Start 05/06/18 at 18:00 Acetaminophen (Tylenol Tab) 650 mg Q4H PRN PO .PAIN 1-5 Last administered on 05/09/18 18:49; Admin Dose 650 MG; Start 05/06/18 at 16:30 Acetaminophen/ Hydrocodone Bitart ([place] (5/325)) 1 tab Q4H PRN PO .PAIN 1-5 Last administered on 05/08/18 10:07; Admin Dose 1 TAB; Start 05/06/18 at 16:30 Senna/Docusate Sodium (Senokot-S) 1 tab BID PO Last administered on 05/10/18 10:05; Admin Dose 1 TAB; Start 05/06/18 at 21:00 Witch Neris/ Glycerin (Tucks Pads) 1 pad BEDSIDE MEDICATION PRN DC .HEMORRHOID/EPISIOTOMY PAIN Last administered on 05/08/18 08:35; Admin Dose 1 PAD; Start 05/06/18 at 16:30 Benzocaine (Dermoplast [place]) 1 spray BEDSIDE MEDICATION PRN TOP .HEMMORHOID/EPISIOTOMY PAIN Last administered on 05/08/18 08:35; Admin Dose 1 SPRAY; Start 05/06/18 at 16:30 Dibucaine (Nupercainal) 1 applic BEDSIDE MEDICATION PRN TOP .HEMMORHOI D/EPISIOTOMY Last administered on 1/28/19at 18:31; Admin Dose 1 APPLIC; Start 05/06/18 at 16:30 Oxytocin/Lactated Ringer's 500 ml @ 0 mls/hr ONCE PRN IV .VAGINAL BLEEDING; Start 05/06/18 at 16:30 Methylergonovine Maleate (Methergine) 0.2 mg ONCE PRN IM .VAGINAL BLEEDING; Start 05/06/18 at 16:30 Carboprost Tromethamine (Hemabate) 250 mcg ONCE PRN IM .VAGINAL BLEEDING; Start 05/06/18 at 16:30 Misoprostol (Cytotec) 1,000 mcg ONCE PRN DC .VAGINAL BLEEDING; Start 05/06/18 at 16:30 Lactated Ringer's 1,000 ml @ 125 mls/hr Q8H IV Last administered on 05/10/18at 12:52; Admin Dose 125 MLS/HR; Start 05/08/18 at 12:00 Piperacillin Sod/ Tazobactam Sod 100 ml @ 200 mls/hr Q6 IVPB Last administered on 05/10/18at 12:59; Admin Dose 200 MLS/HR; Start 05/09/18 at 00:00 JACK HYATT May 10, 2018 15:33
[2018-05-10 16:00] VITALS: BP 119/63; PULSE 65; RESP 19
[2018-05-10] MEDS ORDERED: LACTATED RINGER'S 1,000 ML IV SCH (16:00)
[2018-05-10 20:30] VITALS: BP 104/69; PULSE 57; RESP 20
--- NOTE | 2018-05-10 20:30 | NUR ---
Pneumatic stockings removed Addendum: 05/10/18 at 2125 by RUTH BLACK RN Amended: Links added.
--- NOTE | 2018-05-10 23:24 | NUR ---
Patient c/o pain lower back. level 5, requested Motrin 600mg as ordered given
--- NOTE | 2018-05-11 | NUR ---
PATIENT ASLEEP, Aroused easily, denies pain, afebrile
[2018-05-11] MEDS: PIPER-TAZO 3.375 GM IV (PMX) 100 ML IVPB SCH ×4 (00:08→17:57)
[2018-05-11 04:30] VITALS: BP 114/75; PULSE 55; RESP 20
[2018-05-11] MEDS: IBUPROFEN 600 MG TAB PO SCH ×3 (05:56→17:56)
--- NOTE | 2018-05-11 06:37 | NUR ---
eoss: VITALS with in normal, afebrile, tolerated IV fluids, will continue plan of care
[2018-05-11 08:00] VITALS: BP 115/66; PULSE 51; RESP 18
[2018-05-11] MEDS: SENNA/DOCUSATE NA (8.6MG/50MG) TAB PO SCH (09:15)
--- NOTE | 2018-05-11 12:52 | CONS ---
Assessment/Plan Assessment/Plan Hospital Course (Demo Recall) IMPRESSION: 1. Tachycardia consistent with sinus tachycardia in the setting of high fevers at this time. No significant shortness of breath. No significant asymmetric lower extremity edema.-now improved with defervescence of fever and IVF hydration. Echo thuis admit with NL EF. No sig valve abnl. NL TSH. Now with mild bradycardia actually 2. Abnormal electrocardiogram, left atrial abnormality and nonspecific ST and T-wave abnormalities.-LA size wnl by echo 3. Fevers-recurrent 05/09 4. Status post normal spontaneous vaginal delivery. 5. Anemia. 6. UTI Recc: -Continue abx's and f/u cx data -continue IVF hydration -OK for d/c planning from cardiac stndpoint Consultation Date/Type/Reason Admit Date/Time May 05, 2018 at 10:10 Initial Consult Date 05/08/18 Type of Consult Cardiology Reason for Consultation Tachycardia Requesting Provider: JAIDA BOOGIE MD Date/Time of Note DATE: 05/11/18 TIME: 12:50 Exam/Review of Systems Vital Signs Vitals Vital Signs Date Temp Pulse Resp B/P (MAP) Pulse Ox O2 O2 Flow FiO2 Time Delivery Rate 05/11/18 98.9 51 18 115/66 99 Room Air 08:00 (82) Intake and Output 05/10/18 05/10/18 05/11/18 1515:00 23:00 07:00 IntakeIntake Total 1275 ml 200 ml BalanceBalance 1275 ml 200 ml Exam Exam Review of Systems: CONSTITUTIONAL: No fevers, chills. PULMONARY: No sob CARDIOVASCULAR: No chest pain/palpitations GASTROINTESTINAL: No nausea/vomiting. GENITOURINARY: No hematuria/dysuria. MUSCULOSKELETAL: No myagias/arthalgias. PSYCHIATRIC: The patient denies depression. NEUROLOGIC: No weakness Constitutional: alert Psych: no complaints Head: normocephalic ENMT: mucosa pink and moist Neck: supple, jvd (9 cm water) Respiratory: diminished breath sounds Cardiovascular: regular rate and rhythm Gastrointestinal: soft, non-tender Musculoskeletal: muscle tone (normal) Extremities: edema (none) Neurological: other (No focal deficits) Labs Result Diagram: 05/11/18 0848 05/08/18 1202 Results 24hrs Laboratory Tests Test 05/11/18 08:48 White Blood Count 8.3 # Red Blood Count 2.77 L Hemoglobin 8.2 L Hematocrit 25.2 L Mean Corpuscular Volume 91.0 Mean Corpuscular Hemoglobin 29.6 Mean Corpuscular Hemoglobin Concent 32.5 Red Cell Distribution Width 14.6 H Platelet Count 220 Mean Platelet Volume 10.0 Immature Granulocytes % 1.300 H Neutrophils % 68.1 Lymphocytes % 19.4 Monocytes % 10.0 Eosinophils % 1.0 Basophils % 0.2 Nucleated Red Blood Cells % 0.2 H Immature Granulocytes # 0.110 H Neutrophils # 5.6 Lymphocytes # 1.6 Monocytes # 0.8 Eosinophils # 0.1 Basophils # 0.0 Nucleated Red Blood Cells # 0.0 Medications Medications Current Medications Ibuprofen (Motrin) 600 mg Q6 PO Last administered on 05/11/18 11:46; Admin Dose 600 MG; Start 05/06/18 at 18:00 Acetaminophen (Tylenol Tab) 650 mg Q4H PRN PO .PAIN 1-5 Last administered on 05/09/18 18:49; Admin Dose 650 MG; Start 05/06/18 at 16:30 Acetaminophen/ Hydrocodone Bitart ([place] (5/325)) 1 tab Q4H PRN PO .PAIN 1-5 Last administered on 05/08/18 10:07; Admin Dose 1 TAB; Start 05/06/18 at 16:30 Senna/Docusate Sodium (Senokot-S) 1 tab BID PO Last administered on 05/11/18 09:15; Admin Dose 1 TAB; Start 05/06/18 at 21:00 Witch Neris/ Glycerin (Tucks Pads) 1 pad BEDSIDE MEDICATION PRN [place] .HEMORRHOID/EPISIOTOMY PAIN Last administered on 05/08/18 08:35; Admin Dose 1 PAD; Start 05/06/18 at 16:30 Benzocaine (Dermoplast [place]) 1 spray BEDSIDE MEDICATION PRN TOP .HEMMORHOID/EPISIOTOMY PAIN Last administered on 05/08/18 08:35; Admin Dose 1 SPRAY; Start 05/06/18 at 16:30 Dibucaine (Nupercainal) 1 applic BEDSIDE MEDICATION PRN TOP .HEMMORHOID/EPISIOTOMY Last administered on 05/08/18 18:31; Admin Dose 1 APPLIC; Start 05/06/18 at 16:30 Oxytocin/Lactated Ringer's 500 ml @ 0 mls/hr ONCE PRN IV .VAGINAL BLEEDING; Start 05/06/18 at 16:30 Methylergonovine Maleate (Methergine) 0.2 mg ONCE PRN IM .VAGINAL BLEEDING; Start 05/06/18 at 16:30 Carboprost Tromethamine (Hemabate) 250 mcg ONCE PRN IM .VAGINAL BLEEDING; Start 05/06/18 at 16:30 Misoprostol (Cytotec) 1,000 mcg ONCE PRN MT .VAGINAL BLEEDING; Start 05/06/18 at 16:30 Piperacillin Sod/ Tazobactam Sod 100 ml @ 200 mls/hr Q6 IVPB Last administered on 05/11/18at 11:47; Admin Dose 200 MLS/HR; Start 05/09/18 at 00:00 Lactated Ringer's 1,000 ml @ 50 mls/hr Q20H IV ; Start 05/10/18 at 16:00; Stop 05/13/18 at 15:59 JACK HYATT May 11, 2018 12:52
--- NOTE | 2018-05-11 14:54 | NUR ---
mergers and acquisitions consultant at bedside. the patient was given advice that she can breastfeed the baby. The patient said she is scared because she is receving antibiotics.
[2018-05-11 16:07] VITALS: BP 132/60; PULSE 53; RESP 18
--- NOTE | 2018-05-11 16:12 | NUR ---
RN called Dr. Goncalves per patient request. said he will see the patient later.
--- NOTE | 2018-05-11 16:14 | NUR ---
Mom declined assistance with BF, she had a question regarding BF. Despite education mom chooses to supplement with formula using bottle. She was on the phone while her was feeding their baby. RN to follow. Addendum: 05/11/18 at 1617 by NGUYỄN BACA Amended: Links added.
--- NOTE | 2018-05-11 17:05 | NUR ---
EOSS the patient remainedstable the whole day. VS are WNL. She had no complaint of pain. She tolerated her food well the medical consultant saw the patient as requessted. T patient expects to go home today awaiting the vist of her physician.
--- NOTE | 2018-05-11 19:01 | QN ---
Documentation Comment No complaint Afebrile VSS Abdomen soft Blood culture no growth Urine culture E. coli Stable D/c home Cipro 500mg PO BID x7 days JAIDA BOOGIE MD May 11, 2018 19:01
--- NOTE | 2018-05-11 19:15 | NUR ---
DR. BOOGIE AT BEDSIDE. DISCHARGED THE PATIENT. PT TO TAKE CIPRO 500 MG TWICE A DAY FOR 7 DAYS AND SHE IS TO RETURN TO THE CLINIC IN ONE WEEK.
[2018-05-11 19:21] VITALS: BP 136/74; RESP 20
--- NOTE | 2018-05-11 19:45 | NUR ---
DISCHARGE INSRUCTIONS GIVEN TO THE PATIENT. PATIENT VERBALIZED AN UNDERSTANDING OF THE INSTRUCTIONS.
--- NOTE | 2018-05-11 19:50 | NUR ---
PT LEFT UNIT VIA W/C WITH BABY THAT WAS DISCHARGED YESTERDAY. FOB WENT AHEAD TO BRING CAR TO DISCHARGE AREA ONE. VOLUNTEERS WHEELED PT TO DISCHARGE AREA ONE.
== END 2018-05-11 19:50 | disposition home or self-care (01) | DRG 805 ==
LOC: L-D 09:37 → OBT 09:37 → L-D 10:10 → PP1 05-06 16:11
PROVIDERS: ADMIT Obstetrics & Gynecology; ATTEND Obstetrics & Gynecology
PROC: 10E0XZZ Delivery of Products of Conception, External Approach (ICD-10-PCS; principal; 2018-05-06)
PROC: 0UQGXZZ Repair Vagina, External Approach (ICD-10-PCS; 2018-05-06)
DX: O75.2 Pyrexia during labor, not elsewhere classified (principal); O75.3 Other infection during labor; Z37.0 Single live birth; O71.4 Obstetric high vaginal laceration alone; O48.0 Post-term pregnancy; Z3A.40 40 weeks gestation of pregnancy; O99.02 Anemia complicating childbirth
CPT/HCPCS: 62319; 71046; 76815; 76818; 80053; 84443; 84560; 85025; 85378; 85610; 85730; 86592; 86850; 86900; 86901; 87040; 87086; 87340; 93005; 93306; 93970; G0463; J2543; J2590; J3010; J7120

== ENCOUNTER 2018-07-18 08:18 | Day surgery (SDC) | payer OTHER ==
[~2018-07-18] VITALS: Ht 152.4 cm; Wt 81.0 kg
[2018-07-18] VITALS (12 sets, daily range): BP systolic 103–132; BP diastolic 66–84; PULSE 66–84; RESP 12–24; Ht 152.4 cm; Wt 81.0 kg
[~2018-07-18 08:18] MED LIST changes: +CEFAZOLIN 2 GM/50 ML (PMX) 50 ML (FOR WT < 120 KG) IVPB ONE; +LACTATED RINGER'S 1,000 ML IV SCH; -NITR-58 PO; +SOD CHLORIDE 0.9% 1,000 ML IV SCH
--- NOTE | 2018-07-18 10:12 | PREAC ---
Date/Time of Note Date/Time of Note DATE: 07/18/18 TIME: 10:11 Anesthesia Eval and Record Evaluation Time Pre-Procedure Interview DATE: 07/18/18 TIME: 10:11 Age 38 Sex female NPO: 8 hrs Preoperative diagnosis desire for permanent sterilization Planned procedure mini lap BTL Past Medical History Past Medical History: Includes GI: Obesity (BMI 35) Surgery & Anesthesia Issues No known issue Meds Anticoagulation: No Beta Leslie within 24 hr: No Reason Beta Leslie not given: Pt. not on B-Leslie No Active Prescriptions or Reported Meds Current Medications Lactated Ringer's 1,000 ml @ 25 mls/hr Q24H IV Last administered on 07/18/18at 09:49; Admin Dose 25 MLS/HR; Start 07/18/18 at 06:00 Sodium Chloride 1,000 ml @ 25 mls/hr Q24H IV ; Start 07/18/18 at 06:00 Meds reviewed: Yes Allergies Coded Allergies: No Known Allergy (Unverified , 07/18/18) Allergies Reviewed: Yes Labs/Studies Labs Reviewed: Reviewed by anesthesiologist Result Diagram: 07/18/18 0920 Laboratory Tests 07/18/18 09:20 test: Negative Pre-procedure Exam Last vitals Vital Signs Date Temp Pulse Resp B/P (MAP) Pulse Ox O2 O2 Flow FiO2 Time Delivery Rate 07/18/18 97.6 68 16 126/66 98 Room Air 09:29 (86) Airway: Adequate mouth opening, Adequate thyromental dist Mallampati: Mallampati II Teeth: Normal Lung: Normal Heart: Normal ASA Physical Status ASA physical status: 2 Emergency: None Planned Anesthetic General/MAC: ETT Planned Pain Management Parenteral pain med, Local by surgeon Pre-operative Attestations Prior to commencing anesthesia and surgery, the patient was re-evaluated, there was verification of: *The patient's identity *The results of appropriate recent lab work and preoperative vital signs *The above evaluation not changing prior to induction *Anesthetic plan, risk benefits, alternative and complications discussed with patient/family; questions answered; patient/family understands, accepts and wishes to proceed. NIMA ELLIOTT Jul 18, 2018 10:12
[2018-07-18] MEDS ORDERED: ONDANSETRON 4 MG INJ IV PRN ×3 (10:30→14:00)
[2018-07-18] MEDS ORDERED: MEPERIDINE 25 MG INJ IV PRN ×2 (10:30→11:00)
[2018-07-18] MEDS ORDERED: OXYCODONE/ACETAMINOPHEN (5/325) TAB PO PRN ×3 (10:30→11:00)
[2018-07-18] MEDS ORDERED: HYDROmorphONE 1 MG/5 ML IV SYRINGE IV PRN ×6 (10:30→11:00)
[2018-07-18] MEDS ORDERED: FENTAnyl 50 MCG/ML VIAL ONE (10:48)
[2018-07-18] MEDS ORDERED: MIDAZOLAM 1 MG/ML 2 ML INJ ONE (10:48)
[2018-07-18] MEDS ORDERED: ROCURONIUM 50 MG INJ ONE (10:48)
[2018-07-18] MEDS ORDERED: PROPOFOL 20 ML ONE (10:48)
[2018-07-18] MEDS ORDERED: ROPIVACAINE 0.5 % 30 ML VIAL ONE (10:49)
[2018-07-18] MEDS ORDERED: FENTAnyl 50 MCG/ML VIAL IV PRN ×3 (11:00)
[2018-07-18] MEDS ORDERED: METOCLOPRAMIDE 10 MG INJ IV PRN (11:00)
[2018-07-18] MEDS ORDERED: DIPHENHYDRAMINE 50 MG INJ IV PRN (11:00)
[2018-07-18] MEDS ORDERED: CEFAZOLIN 1 GM INJ ONE (11:28)
[2018-07-18] MEDS ORDERED: KETOROLAC 30 MG INJ ONE (11:52)
[2018-07-18] MEDS ORDERED: DEXAMETHASONE 4 MG/ML 5 ML INJ ONE (11:52)
[2018-07-18] MEDS ORDERED: ONDANSETRON 4 MG INJ ONE (11:52)
[2018-07-18] MEDS ORDERED: METOCLOPRAMIDE 10 MG INJ ONE (11:52)
[2018-07-18] MEDS ORDERED: SUGAMMADEX SODIUM 200 MG/2 ML VIAL IV ONE (11:53)
[2018-07-18] MEDS ORDERED: BUPIVACAINE 0.5% (SDV) 30 ML INJ ONE (11:55)
--- NOTE | 2018-07-18 12:20 | PAC ---
Date/Time of Note Date/Time of Note DATE: 07/18/18 TIME: 12:20 Post-Anesthesia Notes Post-Anesthesia Note Last documented vital signs Vital Signs Date Temp Pulse Resp B/P (MAP) Pulse Ox O2 O2 Flow FiO2 Time Delivery Rate 07/18/18 98.4 68 16 126/66 98 Room Air 12:29 (86) Activity: WNL Respiratory function: WNL Cardiovascular function: WNL Mental status: Baseline Pain reasonably controlled: Yes Hydration appropriate: Yes Nausea/Vomiting absent: Yes ANTONIO BARTLETT MD Jul 18, 2018 12:20
--- NOTE | 2018-07-18 13:47 | SIPON ---
Date/Time of Note Date/Time of Note DATE: 07/18/18 TIME: 13:44 Operative Report Preoperative Diagnosis Voluntary sterilization Postoperative Diagnosis Same Operation/Procedure Performed Mini laparotomy BTL Surgeon Jaida Boogie MD clinical education assistant morgue technician Anesthesia: general Estimated blood loss: minimal Transfusion Required none Specimen Fallopian tubes Grafts/Implants none Complications none JAIDA BOOGIE MD Jul 18, 2018 13:47
[2018-07-18] MEDS ORDERED: HYDROCODONE/APAP (5/325) TAB PO PRN ×2 (14:00)
[2018-07-18] MEDS ORDERED: morphine 2 MG INJ IV PRN (14:00)
[2018-07-18] MEDS ORDERED: KETOROLAC 30 MG INJ IV PRN (14:00)
--- NOTE | 2018-07-18 23:10 | PREOPHP ---
DATE OF ADMISSION: 07/18/2018 HISTORY OF PRESENT ILLNESS: A 38-year-old female 6, para 5, AB 1 is admitted for voluntary sterilization. PAST MEDICAL HISTORY: Kidney stone. PAST SURGICAL HISTORY: Unremarkable. ALLERGIES: NO KNOWN ALLERGIES. FAMILY HISTORY: Hypertension. PHYSICAL EXAMINATION: VITAL SIGNS: The patient is afebrile. Vital signs stable. HEAD, NECK AND CHEST: Within normal limits. ABDOMEN: Soft, nontender, nondistended. PELVIC: Normal. EXTREMITIES: Within normal limits. NEUROLOGIC: Within normal limits. IMPRESSION: Voluntary sterilization. PLAN: Minilaparotomy, bilateral tubal ligation. Risks, benefits and alternatives of procedure were explained to the patient. The patient has been counseled about all of her contraceptive options including all methods of sterilization. It was explained to the patient that with bilateral tubal ligation there is a chance of failure resulting in ectopic and/or intrauterine . After counseling, the patient said she understood and gave informed consent for the procedure. Dictated By: JAIDA HAWLEY/GAY Conf#: [id number] DID#: [id number] MACEY
--- NOTE | 2018-07-18 23:48 | OPR ---
DATE OF OPERATION: 07/18/2018 PREOPERATIVE DIAGNOSIS: Voluntary sterilization. POSTOPERATIVE DIAGNOSIS: Voluntary sterilization. OPERATION PERFORMED: Minilaparotomy and bilateral tubal ligation. SURGEON: Jaida Goncalves M.D. BINDERY MACHINE OPERATOR: die maintenance technician. ANESTHESIA: General. ANESTHESIOLOGIST: Thomas Coppola M.D. PROCEDURE: The patient was taken to the operating room, placed on the operating table. After succes sful spinal anesthesia was given, the patient was placed in supine position. The area was prepared a nd draped in the usual sterile fashion. Using a scalpel, Pfannenstiel incision was made about 2 fingerbreadths above the symphysis pubis. In cision was carried down to the fascia. The fascia was incised and extended bilaterally with Bovie. Two Hamida's were used to separate the fascia from the muscle. Muscle was dissected down to peritone um. The peritoneum was secured with Kellys and incised with Metzenbaum scissors. Upon entering the peritoneal cavity, the right fallopian tube was grasped with a Marta clamp and followed to its fimb rial end to confirm its identity. Using 0-plain suture ligature, a 5 cm segment of the right fallopi an tube was doubly ligated. Using Metzenbaum scissors, a portion of the right fallopian tube above t he ligated area was excised and sent to pathology. Same procedure was repeated on the left fallopian tube. After assuring hemostasis, the peritoneum was closed with 2-0 chromic continuous. The fascia was closed with 0-Vicryl continuous. Subcutaneous tissue was reapproximated with 0-chromic. Skin w as closed with pallavi. ESTIMATED BLOOD LOSS: Minimal. COUNTS: All counts were correct. Dictated By: JAIDA GONCALVES MD GD/NTS Conf#: [id number] DID#: [id number] CC: RENATE TOLBERT MD; CINDI NUÑEZ M.D.; YUSUF NOLAND MD; PHIL COCHRAN MD;*EndCC*
== END 2018-07-18 14:14 | disposition home or self-care (01) ==
LOC: SDS 08:18
PROVIDERS: ATTEND Obstetrics & Gynecology
DX: Z30.2 Encounter for sterilization (principal)
CPT/HCPCS: 58600; 84703; 85025; 86850; 86900; 86901; 88302; J0690; J1100; J1170; J1885; J2250; J2405; J2765; J2795; J3010; Z7512; Z7610; J7030; J7120